=== PATIENT | female | born 1970 | race Caucasian/White ===

== ENCOUNTER 2020-11-27 02:04 | Emergency (ER) | payer MEDICARE, MEDICAID, SELFPAY ==
[2020-11-27 02:05] VITALS: BP 145/85; PULSE 102; RESP 18; TEMP 36.2; O2SAT 95
[2020-11-27 02:06] VITALS: BP 145/85; PULSE 102; RESP 18; TEMP 36.2; O2SAT 95; BMI 33.5
--- NOTE | 2020-11-27 02:20 | CT_ITS ---
EXAM: CT HEAD WITHOUT INTRAVENOUS CONTRAST : 1970 CLINICAL INDICATION: AMS TECHNIQUE: Multiple axial images were obtained of the head without intravenous contrast. This CT exam was performed using one or more of the following dose reduction techniques: automated exposure control, adjustment of the mA and/or kV according to patient size, and/or use of iterative reconstruction technique. This report was created using [employer] report generation technology. COMPARISON: None. FINDINGS: BRAIN AND EXTRA-AXIAL SPACES: Unremarkable. No intra- or extra-axial hemorrhage. No evidence of acute infarct. No intracranial mass or mass effect. There is preservation of the caceres/white matter interface. Posterior fossa structures are unremarkable. Ventricles are appropriate for age. No hydrocephalus. Basal cisterns are patent. BONES/JOINTS: Unremarkable. No discrete lytic or blastic abnormalities. SINUSES: Unremarkable as visualized. Clear. MASTOID AIR CELLS: Unremarkable. Clear. ORBITS: Visualized globes, extraocular muscles, optic nerves and retrobulbar fat appear unremarkable. CT/Brain/Head without Contrast IMPRESSION: Negative head/brain CT without intravenous contrast. Individualized dose optimization techniques were used for this CT. at 0321 Reported and signed by: Steve Carrizales MD Electronically Signed: Steve Carrizales MD at 3:20 EDT Tel , Service support ,
--- NOTE | 2020-11-27 02:22 | EDS_ITS ---
HPI History of Present Illness Chief Complaint: Confusion Narrative Narrative: 50-year-old female presenting with what is reported by her aunt as altered mental status. The patient's aunt states that she lives with her brother full-time. Apparently when he left today she had a fall. She is unable to get up from the ground at baseline because she has cerebral palsy. She does not walk. She uses a sitdown walker to move around the house or she crawls around the house. The patient's aunt does not know what her baseline is because she has not seen her in a while. She states it has been 8 years. When I asked what the uncle thought was a change in her baseline she states she does not note. Her aunt states that earlier yesterday she was rolling on the floor and combative with her uncle. Patient states that she does not recall this happening. There is no reported medical history other than cerebral palsy. [facility] Medical History Cerebral palsy Home Medications cephalexin 500 mg PO BID 7 Days #14 cap 11/27/20 [Rx Last Taken Unknown] Allergy/AdvReac Type Severity Reaction Status Date / Time No Known Allergies Allergy Verified 11/27/20 02:13 Social History Smoking Status: Never smoker ROS ROS ED Constitutional Constitutional ED: Denies chills or fever(s) Eyes Eyes: Denies blurry vision or change in vision ENT ENT ED: Denies rhinorrhea or sore throat Cardiovascular Cardiovascular: Denies chest pain or palpitations Respiratory/Chest Respiratory/Chest: Denies cough, dyspnea, dyspnea on exertion or sputum Gastrointestinal Gastrointestinal: Denies abdominal pain, nausea or vomiting Genitourinary Genitourinary ED: Denies dysuria or hematuria Musculoskeletal Musculoskeletal: Denies arthralgias or myalgias Integumentary Denies abscess or rash Neurologic Neurologic: Denies headache(s) or paresthesias Psychiatric Psychiatric: Denies anxiety or depression EXAM Physical Exam Const Vital Signs: 11/27/20 02:05 11/27/20 02:06 11/27/20 04:46 Temperature 97.2 F L 97.2 F L Temperature Source Temporal Temporal Pulse Rate 102 H 102 H 81 Respiratory Rate 18 18 16 Blood Pressure 145/85 H 145/85 H 137/74 H Blood Pressure Mean 105 105 95 Pulse Ox 95 95 99 Oxygen Delivery Method Room Air Room Air Positive obese and unkempt General Appearance ED: unkempt and NAD Nutritional Appearance: obese HEENT Reports moist mucous membranes HEENT Narrative: Multiple dental caries throughout. Negative for trauma Eyes PERRL and EOMs intact bilaterally Neck no lymphadenopathy and supple Chest Wall inspection of chest normal and palpation of chest normal Resp normal respiratory effort and clear to auscultation bilaterally Cardio regular rate and regular rhythm GI normal to inspection, nondistended, normoactive bowel sounds Back/Spine Cervical Spine: Negative for cervical spine tenderness Thoracic Spine / Upper Back: Negative for thoracic spinal tenderness Lumbar Spine / Lower Back: Negative for lumbar spinal tenderness Extremity Extremity Narrative: There is mild swelling of the left olecranon with some erythema overlying. This is nontender to palpation. Patient has full range of motion of the left elbow. Neuro oriented x3 and CN's II-XII intact bilaterally Sensorium / Orientation: alert Psych mental status grossly normal Appearance: unkempt Skin Skin Narrative: As described above MDM MDM MDM Narrative Medical decision making narrative: 50-year-old female presents for evaluation after is reported that she had a fall today while her uncle was gone. He reported to her and that she was acting strangely but we do not know what her actual baseline is. She is answering questions appropriately. She states she has no pain. She states she is not nauseous. She also states she does not remember thrashing around and acting strangely. On examination she does have some mild erythema over her left olecranon which looks like a bursitis. Rest of her physical exam is unremarkable although she is quite unkempt and has poor dentition. Patient has leukocytosis of 13.8, hemoglobin and hematocrit are stable. Platelets are normal. Potassium was slightly low at 3.3. Patient's renal function and electrolytes are normal otherwise. Patient's urine was sent for culture. Patient is placed on Keflex. Adult Protective Services was called to check on her given her unkempt appearance as well as being unsupervised at home. Her aunt states that her mother is blind, but that her uncle can provide antibiotic treatment at home. She is counseled to keep well-hydrated and should drink enough water until her urine is clear. Impression: 1. UTI 2. Fall 3. Altered mental status resolved 4. Left olecranon bursitis Lab Data Labs: Laboratory Results - last 24 hr 11/27/20 11/27/20 11/27/20 02:30 02:30 02:30 WBC 13.8 H RBC 5.49 H Hgb 15.6 H Hct 45.9 MCV 83.6 MCH 28.4 MCHC 34.0 RDW Std Deviation 38.8 RDW Coeff of Lore 12.8 Plt Count 257 MPV 9.5 Immature Gran % (Auto) 0.600 Neut % (Auto) 85.8 H Lymph % (Auto) 7.7 L Nash % (Auto) 5.7 Eos % (Auto) 0.1 Baso % (Auto) 0.1 Absolute Neuts (auto) 11.9 H Absolute Lymphs (auto) 1.07 Nucleated RBC % 0 Sodium 135 L Potassium 3.3 L Chloride 99 Carbon Dioxide 26.0 Anion Gap 10 BUN 10 Creatinine 0.94 Estim Creat Clear Calc 60.54 Est GFR (MDRD) Af Amer 81 Est GFR (MDRD) Non-Af 67 BUN/Creatinine Ratio 10.6 Glucose 127 H Calcium 9.3 Total Creatine Kinase Urine Color Urine Clarity Urine pH Ur Specific [place] Urine Protein Urine Glucose (UA) Urine Ketones Urine Occult Blood Urine Nitrite Urine Bilirubin Urine Urobilinogen Ur Leukocyte Esterase Urine RBC Urine WBC Ur Squamous Epith Cells Urine Bacteria Urine Mucus Urine Test Urine Opiates Screen Urine Methadone Screen Ur Barbiturates Screen Ur Phencyclidine Scrn Ur Amphetamines Screen U Methamphetamin-MDMA U Benzodiazepines Scrn Urine Cocaine Screen U Cannabinoids Screen Ur Drug Screen Comment Ethyl Alcohol < 3.0 11/27/20 11/27/20 11/27/20 02:30 02:45 02:45 WBC RBC Hgb Hct MCV MCH MCHC RDW Std Deviation RDW Coeff of Lore Plt Count MPV Immature Gran % (Auto) Neut % (Auto) Lymph % (Auto) Nash % (Auto) Eos % (Auto) Baso % (Auto) Absolute Neuts (auto) Absolute Lymphs (auto) Nucleated RBC % Sodium Potassium Chloride Carbon Dioxide Anion Gap BUN Creatinine Estim Creat Clear Calc Est GFR (MDRD) Af Amer Est GFR (MDRD) Non-Af BUN/Creatinine Ratio Glucose Calcium Total Creatine Kinase 1717 H Urine Color Yellow Urine Clarity Sl. Cloudy Urine pH 6.0 Ur Specific [place] 1.025 Urine Protein 100 H Urine Glucose (UA) 250 H Urine Ketones 150 A* Urine Occult Blood 250 H Urine Nitrite Positive H Urine Bilirubin 1 H Urine Urobilinogen 8 H Ur Leukocyte Esterase 25 H Urine RBC 0-5 SEEN Urine WBC 0-5 SEEN Ur Squamous Epith Cells 0 SEEN Urine Bacteria 3+ Urine Mucus 0 SEEN Urine Test Negative Urine Opiates Screen NEGATIVE Urine Methadone Screen NEGATIVE Ur Barbiturates Screen NEGATIVE Ur Phencyclidine Scrn NEGATIVE Ur Amphetamines Screen NEGATIVE U Methamphetamin-MDMA NEGATIVE U Benzodiazepines Scrn NEGATIVE Urine Cocaine Screen NEGATIVE U Cannabinoids Screen NEGATIVE Ur Drug Screen Comment Ethyl Alcohol Radiography Diagnostic Testing: Radiology Impression Brain CT 11/27/20 02:20 IMPRESSION: Negative head/brain CT without intravenous contrast. Individualized dose optimization techniques were used for this CT. at 0321 Reported and signed by: Steve Carrizales MD Electronically Signed: Steve Carrizales MD at 3:20 EDT Tel , Service support , Chest X-Ray 11/27/20 03:00 IMPRESSION: No radiographic evidence of acute cardiopulmonary disease. at 0326 Reported and signed by: Steve Carrizales MD Electronically Signed: Steve Carrizales MD at 3:25 EDT Tel , Service support , Discharge Plan Triage Chief Complaint: Confusion ED Provider: Kip Holland Dx/Rx/DC Orders Instructions: ED CYSTITIS Female Adult, ED Bursitis Elbow Olecranon Prescriptions: New cephalexin 500 mg capsule 500 mg PO BID 7 Days Qty: 14 RF: 0 Primary Care Provider: Care Physician,No Primary Referrals: Murray Pearson MD [STAFF PHYSICIAN] - As soon as possible Care Physician,No Primary [Primary Care Provider] - Disposition Disposition: Home, Self Care Discharge Date/Time: 11/27/20 04:47
[2020-11-27 02:42] LABS: Absolute Lymphocyte Count 1.07 X10^3/uL (0.83-4.51); Absolute Neutrophil Count 11.9 X10^3/uL (2.0-7.7); Basophil# 0.02 X10^3/uL; Basophil% 0.1 % (0-1); Eosinophil# 0.01 X10^3/uL; Eosinophils% 0.1 % (0-5); Hematocrit 45.9 % (37-47); Hemoglobin 15.6 g/dL (12.0-15.0); Lymphocyte # 1.07 X10^3/ul (0.83-4.51); Lymphocyte % 7.7 % (19-41); Mean Corpuscular Hgb 28.4 pg (27.0-32.0); Mean Corpuscular Volume 83.6 fL (81-99); Mean Platelet Vol. 9.5 fl (6.2-12.0); Monocyte# 0.79 X10^3/uL; Monocyte% 5.7 % (0-10); NRBC Flagged by Analyzer 0 % (0-5); Neutrophil # 11.87 X10^3/uL (2.7-7.7); Neutrophil % 85.8 % (47-70); Platelet Count 257 K/mm3 (150-450); RBC Distribution Width CV 12.8 % (11.6-14.6); RBC Distribution Width SD 38.8 fl (35.1-43.9); Red Blood Count 5.49 M/mm3 (4.2-5.4); White Blood Count 13.8 K/mm3 (4.4-11.0)
--- NOTE | 2020-11-27 02:52 | ED.RN ---
PT HAS MULTIPLE HEALING AREAS ON KNEES AND LEFT ARM, BOTTOMS OF PT'S FEET ARE BLACK WITH POOR HYGIENE, PT HAS EXCORIATED AREAS IN GROIN AND GRITTY BLACK GRIME IN GROIN AND BUTTOCK. DR. HATFIELD INFORMED OF SAME.
[2020-11-27 02:55] LABS: Anion Gap 10 (5-15); BUN 10 mg/dL (7-18); BUN/Creat Ratio 10.6 RATIO (10-20); Calcium,Total 9.3 mg/dL (8.5-10.1); Chloride 99 mmol/L (98-107); Creatinine, Serum 0.94 mg/dL (0.55-1.02); EST Glomerular Filtration Rate 67 mL/min (>60); Est Glom Filt Rate - Afr Amer 81 mL/min (>60); Estimated Creatinine Clearance 60.54 ml/min; Glucose 127 mg/dL (74-106); Potassium 3.3 mmol/L (3.5-5.1); Sodium Level 135 mmol/L (136-145)
[2020-11-27 02:55] LABS: Mucous, Urine 0 SEEN /hpf (<or=2+); Squamous Epithelial Cells - UA 0 SEEN /hpf (5-10)
--- NOTE | 2020-11-27 03:00 | RAD_ITS ---
EXAM: XR CHEST, 1 VIEW : 1970 CLINICAL INDICATION: Altered Mental Status TECHNIQUE: Frontal view of the chest. This report was created using [employer] report generation technology. COMPARISON: 10/05/2011 FINDINGS: LUNGS AND PLEURAL SPACES: Unremarkable. No consolidation or edema. No pneumothorax. No effusion. HEART: Unremarkable. Cardiac silhouette not enlarged. MEDIASTINUM: Central airways and mediastinal contour are unremarkable. BONES/JOINTS: Unremarkable. SOFT TISSUES: Unremarkable. RAD/Chest 1 View (Portable) IMPRESSION: No radiographic evidence of acute cardiopulmonary disease. at 0326 Reported and signed by: Steve Carrizales MD Electronically Signed: Steve Carrizales MD at 3:25 EDT Tel , Service support ,
[2020-11-27 03:26] LABS: Alcohol, Blood (Medical)-Serum < 3.0 mg/dL
[2020-11-27 03:27] LABS: Color, Urine Yellow (Yellow); Glucose, Dipstick 250 mg/dl (Normal); Leukocyte Esterase-Dipstick 25 /ul (Negative); Nitrite-Dipstick Positive (Negative); Occult Blood-Urine 250 /ul (Negative); Protein-Dipstick 100 mg/dl (Negative); Specific Gravity, Urine 1.025 (1.002-1.030); Urine Clarity Sl. Cloudy (Clear); Urine Urobilinogen 8 mg/dl (Normal)
[2020-11-27 03:39] LABS: Bacteria 3+ /hpf (None Seen); Internal QC Validated? YES +Cl - CLEAR BKGD; Pregnancy, Urine Negative Negative; Red Blood Cells-Urine 0-5 SEEN /hpf (0-5); Urine Bilirubin Dipstick 1 mg/dL (Negative); White Blood Cells 0-5 SEEN /hpf (0-5)
[2020-11-27 03:47] LABS: Ketone-Dipstick 150 mg/dl (Negative)
[2020-11-27 03:48] LABS: Amphetamine Urine VISTA NEGATIVE (<1000 ng/mL); Barbiturate Urine VISTA NEGATIVE (< 200 ng/mL); Benzodiazepine Urine VISTA NEGATIVE (< 200 ng/mL); Cocaine Urine VISTA NEGATIVE (< 300 ng/mL); Ecstacy Urine VISTA NEGATIVE (< 500 ng/mL); Methadone Urine VISTA NEGATIVE (< 300 ng/mL); PCP Urine VISTA NEGATIVE (< 25 ng/mL); THC Urine VISTA NEGATIVE (< 50 ng/mL); Vista UDS pH Range 6
[2020-11-27 03:48] LABS: CPK Total, Creatine Kinase 1717 U/L (26-192)
[2020-11-27] MEDS: Cephalexin 250 MG Capsule 500 MG PO (04:45)
[2020-11-27 04:46] VITALS: BP 137/74; PULSE 81; RESP 16; O2SAT 99
== END 2020-11-27 04:47 | disposition home or self-care (01) ==
PROVIDERS: Emergency Provider Student in an Organized Health Care Education/Training Program
DX: N39.0 Urinary tract infection, site not specified (principal); M70.22 Olecranon bursitis, left elbow; R41.82 Altered mental status, unspecified; G80.9 Cerebral palsy, unspecified; E66.9 Obesity, unspecified
CPT/HCPCS: 70450; 71045; 80048; 80307; 81001; 81025; 82077; 82550; 85025; 87086; 99283; A4216

== ENCOUNTER 2021-07-15 12:59 | Observation (INO) | payer MEDICARE, MEDICAID, SELFPAY ==
[2021-07-15 13:00] VITALS: BP 162/124; PULSE 102; RESP 16; TEMP 36.3; O2SAT 100; BMI 27.9
--- NOTE | 2021-07-15 13:09 | EX.ED.DYSGE1 ---
HPI History of Present Illness Chief Complaint: Complaint Detail of Chief Complaint: Dysuria Onset/Context/Timing Onset: Today Context: Sudden Onset Timing: Intermittent Quality: Burning with urination Location: Urethra Current Severity: Gone Maximum Severity: Moderate Worsened by: Urinating Relieved by: Nothing Associated Symptoms Associated Symptoms: Nothing Narrative Narrative: Patient is a 50-year-old woman with history of cerebral palsy who presents with burning with urination . Symptoms started today. She denies fever or chills. She denies night sweats. She denies nausea or vomiting. She has not had a recent urinary tract infection. She does not self cath. She denies back or flank pain. Prior similar symptoms: Yes Recent Illness/Hospitalization: No PFSH PFS Medical History Cerebral palsy Home Medications cephalexin 500 mg PO BID 7 Days #14 cap 11/27/20 [Rx Last Taken Unknown] phenazopyridine [Pyridium] 200 mg PO TID #10 tab 07/15/21 [Rx Last Taken Unknown] Allergy/AdvReac Type Severity Reaction Status Date / Time No Known Allergies Allergy Verified 11/27/20 02:13 Social History (Updated 07/15/21 @ 13:[address] Huy Echavarria MD) household members: other Smoking Status: Unknown if ever smoked substance use type: does not use ROS ROS ED Constitutional Constitutional ED: Denies chills, fever(s), subjective, sweats or weight loss Eyes Eyes: Denies blurry vision, change in vision or diplopia Cardiovascular Cardiovascular: Denies chest pain or palpitations Respiratory/Chest Respiratory/Chest: Denies cough or dyspnea Gastrointestinal Gastrointestinal: Denies abdominal pain, constipation, diarrhea, melena, nausea or vomiting Genitourinary Genitourinary ED: Reports dysuria; Denies hematuria or urinary frequency Integumentary Denies rash Hematologic/Lymphatic Hematologic/Lymphatic: Denies anemia, easy bleeding or easy bruising EXAM Physical Exam Const Vital Signs: 07/15/21 13:00 Temperature 97.4 F L Temperature Source Temporal Pulse Rate 102 H Respiratory Rate 16 Blood Pressure 162/124 H Blood Pressure Mean 136 Pulse Ox 100 Oxygen Delivery Method Room Air Positive well nourished and well developed General Appearance ED: well developed and NAD; Negative for cyanotic or diaphoretic HEENT Reports TM's clear and dry mucous membranes HEENT Narrative: Poor dentition. Negative for trauma or tenderness Tympanic Membrane ED: Yes TM's clear Mouth ED: Yes dry mucous membranes Mouth: dry mucous membranes Eyes EOMs intact bilaterally; Negative for PERRL Eyes Narrative: Pupil is not reactive on the left. She is unable to see out of her left eye. General Eye ED: Negative for pale conjunctiva or scleral icterus Neck no lymphadenopathy, supple and no JVD Resp normal respiratory effort and clear to auscultation bilaterally Cardio regular rate, regular rhythm, S1 normal heart sound, S2 normal heart sound and no murmurs GI normal to inspection, nondistended, normoactive bowel sounds, non-tender and non-distended Palpation: soft Back/Spine no CVA tenderness Extremity Negative for normal to inspection General Extremety ED: Negative for edema or tenderness General Extremity: Negative for edema Neuro oriented x3, CN's II-XII intact bilaterally and No no sensory deficits noted Sensorium / Orientation: alert Motor Exam: Negative for strength 5/5 throughout Psych mental status grossly normal Skin no rashes or lesions noted and no wounds General Skin Exam: Negative for jaundice MDM MDM MDM Narrative Medical decision making narrative: Patient presents with urinary tract symptoms. Since she has no systemic symptoms and no CVA tenderness will obtain UA. Since patient is unable to stand straight cath was ordered. Lab Data Attestation: I reviewed the patient's lab results. Lab results narrative: Urine reveals ketones and on the macro occult blood and leukoesterase were noted however the microscopic is normal with no reds, whites or bacteria. We will treat her dysuria with Pyridium. Per the nurse there was no inflammation erythema or discharge noted on straight cath. Labs: Laboratory Results - last 24 hr 07/15/21 13:32 Urine Color Yellow Urine Clarity Clear Urine pH 5.0 Ur Specific [place] 1.020 Urine Protein Negative Urine Glucose (UA) Normal Urine Ketones 50 H Urine Occult Blood 10 H Urine Nitrite Negative Urine Bilirubin Negative Urine Urobilinogen 1 H Ur Leukocyte Esterase 25 H Urine RBC 0 SEEN Urine WBC 0 SEEN Ur Squamous Epith Cells 0 SEEN Urine Bacteria 0 SEEN Urine Mucus 0 SEEN Discharge Plan Triage Chief Complaint: Complaint ED Provider: Huy Echavarria Dx/Rx/DC Orders Clinical Impression: Dysuria Instructions: ED Dysuria, Uncertain Cause (Adult) Prescriptions: New phenazopyridine [Pyridium] 200 MG tablet 200 mg PO TID Qty: 10 RF: 0 No Action cephalexin 500 mg capsule 500 mg PO BID 7 Days Qty: 14 RF: 0 Primary Care Provider: Care Physician,No Primary Referrals: Care Physician,No Primary [Primary Care Provider] - Doctor,Your [STAFF PHYSICIAN] - 3-5 Days if not improving Activity Restrictions/Additional Instructions: The Pyridium will change the color of her urine to orange/red color. Disposition Disposition: Home, Self Care
[2021-07-15 13:37] LABS: Bacteria 0 SEEN /hpf (None Seen); Mucous, Urine 0 SEEN /hpf (<or=2+); Red Blood Cells-Urine 0 SEEN /hpf (0-5); Squamous Epithelial Cells - UA 0 SEEN /hpf (5-10); White Blood Cells 0 SEEN /hpf (0-5)
[2021-07-15 13:41] LABS: Color, Urine Yellow (Yellow); Glucose, Dipstick Normal (Normal); Ketone-Dipstick 50 mg/dl (Negative); Leukocyte Esterase-Dipstick 25 /ul (Negative); Nitrite-Dipstick Negative (Negative); Occult Blood-Urine 10 /ul (Negative); Protein-Dipstick Negative (Negative); Urine Bilirubin Dipstick Negative (Negative); Urine Clarity Clear (Clear); Urine Urobilinogen 1 mg/dl (Normal)
--- NOTE | 2021-07-15 14:12 | ED.RN ---
called social work associate to evaluate pt
--- NOTE | 2021-07-15 14:52 | HP.PCM.HOS_ITS ---
HPI - General HPI Narrative NADER VALLES, is a 50 F who presented to the emergency department was [facility] on 07/15/2021 with a chief complaint of burning with urination. Her symptoms started on the day of presentation. She denied any fever chills, night sweats, nausea or vomiting and has had no recent urinary tract infection. A UA was obtained by the emergency department physician and was reviewed with she and her brother who was at the bedside and at that time the brother informed the emergency department physician that the patient needs placed in nursing facility because he cannot care for her. Social work met with the patient and after review of insurance it was clarified that she would need precertification for [facility] placement. The patient was cared for by her mother until February 2021 at which time her mother . She was then placed with a sister. Unfortunately her sister has children and multiple stressors and was unable to care for her any longer and she was therefore passed to her brother. Her brother works full-time and is unable to care for her at home. Upon presentation she appears unkept. Request for admission was made for placement purposes. Vital signs in the emergency department were temperature of 97.4, heart rate 102, blood pressure 162/124, respiratory rate 16, oxygen saturation 100% on room air. It appears that she has been mildly tachycardic and hypertensive with previous hospital visits but is on no baseline medication. She has cerebral palsy. [facility] Medical History Cerebral palsy Home Medications phenazopyridine [Pyridium] 200 mg PO TID #10 tab 07/15/21 [Rx Last Taken Unknown] Allergy/AdvReac Type Severity Reaction Status Date / Time No Known Allergies Allergy Verified 11/27/20 02:13 Family History Other COPD (chronic obstructive pulmonary disease) Cancer Diabetes Heart disease no surgical history Social History (Updated 07/15/21 @ 15:[address] Teresa Fermin DO) household members: other financial difficulty paying for basics: very hard Smoking Status: Never smoker second hand exposure: Yes alcohol intake: never substance use type: does not use ROS Constitutional Constitutional: Reports change in weight; Denies anorexia, chills, fatigue, fever(s), malaise, night sweats, weakness or other Eyes Eyes: Denies blurry vision, change in eye color, change in vision, discharge from eye(s), double vision, erythema, eye pain, loss of vision or other ENT HEENT: Denies abnormal hearing, dysphagia, ear pain, epistaxis, headache(s), hearing loss, nasal congestion, nasal discharge, post nasal drip, sinus pressure, sore throat or other Cardiovascular Cardiovascular: Denies chest pain, claudication, dyspnea on exertion, edema, lightheadedness, orthopnea, palpitations, paroxysmal nocturnal dyspnea, rapid heart rate, syncope or other Respiratory/Chest Respiratory/Chest: Denies cough, dyspnea, excessive phlegm production, hemoptysis, productive cough, shortness of breath at rest, shortness of breath with exertion, wheezing or other Gastrointestinal Gastrointestinal: Denies abdominal pain, coffee ground emesis, constipation, diarrhea, dyspepsia, hematemesis, hematochezia, loose stools, melena, nausea, vomiting or other Genitourinary Genitourinary: Reports burning urination; Denies difficulty urinating, dysuria, hematuria, nocturia, urinary frequency, urinary hesitancy, urinary incontinence, urinary urgency or other Musculoskeletal Musculoskeletal: Reports joint pain, joint stiffness and other; Denies arthralgias, back pain, joint swelling, myalgias or neck pain Neurologic Neurologic: Reports abnormal gait; Denies abnormal speech, confusion, disequilibrium, dizziness, focal weakness, headache(s), numbness, paresthesias, seizure-like activity, seizures, syncope, tingling, tremor(s) or other Psychiatric Psychiatric: Reports depression; Denies anxiety, homicidal ideation, suicidal ideation or other Endocrine Endocrinology: Denies change in body appearance, cold intolerance, excessive sweating, heat intolerance, polydipsia, polyuria or other Hematologic/Lymphatic Hematologic/Lymphatic: Denies anemia, easy bleeding, easy bruising, lymphadenopathy or other Allergic/Immunologic Allergic/Immunologic: Denies rhinitis, hives, eczemia, asthma or other Vital Signs Vital Signs Vital Signs: 07/15/21 13:00 Temperature 97.4 F L Temperature Source Temporal Pulse Rate 102 H Respiratory Rate 16 Blood Pressure 162/124 H Blood Pressure Mean 136 Pulse Ox 100 Oxygen Delivery Method Room Air Weight Weight: 76.204 kg Body Mass Index (BMI) 27.9 Physical Exam Const alert, oriented x3 and no apparent distress Constitutional Narrative: Extremely disheveled middle-aged white female who appears older than stated age sitting up in bed, brother at bedside, patient appears nontoxic, pleasant General Appearance: cooperative HEENT normocephalic, head/scalp atraumatic, hearing grossly normal bilaterally and moist oral mucous membranes HEENT Narrative: Extremely poor dentition with broken off and rotted teeth, mucous membranes are moist, Mallampati is 2 Eyes Eyes Narrative: Left eye cataract Resp normal respiratory effort, no retractions, no use of accessory muscles and clear to auscultation bilaterally Auscultation: Negative for crackles, rales, rhonchi or wheezes Cardio regular rate, regular rhythm, S1 normal heart sound, S2 normal heart sound, no murmurs, no rub, no gallops, no clicks and no JVD GI normal to inspection, nondistended, normoactive bowel sounds, soft to palpation, non-tender, non-distended and hepatosplenomegaly Extremity no clubbing, cyanosis or edema Extremity Narrative: Increase spasticity left greater than right upper and lower extremities with decreased lean muscle mass Peripheral Pulses: Yes pulses 2+ throughout Skin skin turgor normal, no jaundice, no petechiae and no mottling Skin Narrative: And is unclean, dirt underneath fingernails Neuro oriented x3, CN's II-XII intact bilaterally and moves all extremities Neuro Narrative: Marked spasticity noted Sensorium / Orientation: awake and alert Psych Psych Narrative: Tearful at times with regards to the recent of her mother, affect is flat Mood & Affect: depressed Results Lab / Micro Data Attestation: I reviewed the patient's lab results. Labs: Laboratory Results - last 24 hr 07/15/21 13:32: Urine Color Yellow, Urine Clarity Clear, Urine pH 5.0, Ur Spec ific [place] 1.020, Urine Protein Negative, Urine Glucose (UA) Normal, Urine Ketones 50 H, Urine Occult Blood 10 H, Urine Nitrite Negative, Urine Bilirubin Negative, Urine Urobilinogen 1 H, Ur Leukocyte Esterase 25 H, Urine RBC 0 SEEN, Urine WBC 0 SEEN, Ur Squamous Epith Cells 0 SEEN, Urine Bacteria 0 SEEN, Urine Mucus 0 SEEN Assessment & Plan Assessment/Plan (1) Debility: PLAN: Debility secondary to cerebral palsy -Patient was cared for by her mother until February 2021 at which time she -No family at this time that is able to take care of her -She is currently unkept and has been passed around from family member to family member until brought in today -Physical therapy and Occupational Therapy consultation -Case has been discussed with case management -Patient will likely need to be cleared by the [facility] -May be beneficial to obtain guardianship -Obtain a.m. labs with CBC/CMP/Phos/mag/TSH Elevated blood pressure -No diagnosis of hypertension previously -Blood pressures have been elevated -We will give her as needed hydralazine at this time and if remains elevated patient may need to be initiated on an antihypertensive -Trend blood pressures Dysuria -Patient complained of dysuria and presentation -UA shows no signs of infection -As needed pyridine Cerebral palsy -Stable DVT prophylaxis -Lovenox CODE STATUS Full code as per discussion the emergency department with patient and brother who is at the bedside Charges/Coding Visit Charges Inpatient E&M: 55154 Subs Hosp L2
[2021-07-15] MEDS: Phenazopyridine 95 MG Tablet 190 MG PO (14:54)
[2021-07-15 14:55] VITALS: BP 153/108; PULSE 93; RESP 18; TEMP 37.1; O2SAT 96
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
[2021-07-15 15:31] VITALS: BMI 27.4
[2021-07-15 15:49] VITALS: BP 143/109; PULSE 88; RESP 18; TEMP 36.6; O2SAT 98
[2021-07-15 20:00] VITALS: RESP 16; O2SAT 96
[2021-07-15 20:20] VITALS: BP 148/90; PULSE 106; RESP 18; TEMP 36.7; O2SAT 96
[2021-07-15] MEDS: Phenazopyridine 95 MG Tablet PO (20:21)
[2021-07-15] MEDS: Menthol/Lanolin/Calamine/Znox 113 GM Tube 1 APPLIC TOPICAL (22:57)
[2021-07-16] MEDS: MELATONIN 3 MG TABLET PO ×2 (00:09→21:30)
[2021-07-16 00:16] VITALS: BP 110/84; PULSE 94; RESP 18; TEMP 36.2; O2SAT 94
[2021-07-16 03:23] VITALS: BP 116/83; PULSE 99; RESP 20; TEMP 36.6; O2SAT 93
[2021-07-16] MEDS: Phenazopyridine 95 MG Tablet PO ×3 (06:18→21:29)
[2021-07-16 06:45] LABS: Absolute Lymphocyte Count 0.77 X10^3/uL (0.83-4.51); Absolute Neutrophil Count 9.9 X10^3/uL (2.0-7.7); Basophil# 0.01 X10^3/uL; Basophil% 0.1 % (0-1); Eosinophil# 0.02 X10^3/uL; Eosinophils% 0.2 % (0-5); Hematocrit 47.1 % (37-47); Hemoglobin 16.4 g/dL (12.0-15.0); Lymphocyte # 0.77 X10^3/ul (0.83-4.51); Lymphocyte % 6.9 % (19-41); Mean Corp Hgb Conc 34.8 g/dL (32-36); Mean Corpuscular Hgb 29.3 pg (27.0-32.0); Mean Corpuscular Volume 84.3 fL (81-99); Mean Platelet Vol. 9.8 fl (6.2-12.0); Monocyte# 0.39 X10^3/uL; Monocyte% 3.5 % (0-10); NRBC Flagged by Analyzer 0 % (0-5); Neutrophil # 9.88 X10^3/uL (2.7-7.7); Neutrophil % 88.9 % (47-70); Platelet Count 262 K/mm3 (150-450); RBC Distribution Width SD 39.2 fl (35.1-43.9); Red Blood Count 5.59 M/mm3 (4.2-5.4); White Blood Count 11.1 K/mm3 (4.4-11.0)
[2021-07-16 07:19] LABS: ALB/GLOB Ratio 0.8 RATIO (0.9-2.4); AST(SGOT) 17 U/L (15-37); Alanine Aminotransfer ALT/SGPT 29 U/L (13-56); Albumin, Serum 3.4 g/dL (3.2-5.0); Alkaline Phosphatase 108 U/L (45-117); Anion Gap 8 (5-15); BUN 18 mg/dL (7-18); BUN/Creat Ratio 22.5 RATIO (10-20); Calcium,Total 9.1 mg/dL (8.5-10.1); Chloride 103 mmol/L (98-107); EST Glomerular Filtration Rate 81 mL/min (>60); Est Glom Filt Rate - Afr Amer 98 mL/min (>60); Estimated Creatinine Clearance 68.02 ml/min; Globulin 4.2 g/dL (2.2-4.2); Glucose 160 mg/dL (74-106); Magnesium 2.1 mg/dL (1.6-2.6); Phosphorus 2.4 mg/dL (2.5-4.9); Potassium 3.5 mmol/L (3.5-5.1); Protein, Total 7.6 g/dL (6.4-8.2); Sodium Level 136 mmol/L (136-145); Thyroid Stim Hormone (TSH) 1.25 uIU/mL (0.358-3.74)
[2021-07-16 08:43] VITALS: BP 127/93; PULSE 87; RESP 16; TEMP 36.4; O2SAT 93
[2021-07-16 08:51] LABS: Hemoglobin A1c 4.7 % (3.8-5.6)
[2021-07-16] MEDS: Menthol/Lanolin/Calamine/Znox 113 GM Tube 1 APPLIC TOPICAL ×2 (08:52→21:30)
[2021-07-16] MEDS: Enoxaparin 40 MG/0.4 ML Syringe SC (08:52)
[2021-07-16] MEDS: Na Biphos/Potassium Phosphate PACKET 1 PACKET PO (09:14)
--- NOTE | 2021-07-16 09:33 | PCM.PN.HOSP ---
Subjective Subjective No specific issues overnight. Patient was not all that willing to talk to me this morning. Objective Data Objective Data Vital Signs: Vital Signs Temp Pulse Resp BP Pulse Ox 97.5 F L 87 16 127/93 H 93 07/16/21 08:43 07/16/21 08:43 07/16/21 08:43 07/16/21 08:43 07/16/21 08:43 Oxygen Delivery Method Room Air Weight: 68.039 kg Body Mass Index (BMI) 27.4 Intake & Output: Intake and Output for Last 24 Hours 07/14/21 07/15/21 07/17/21 23:59 23:59 00:59 Intake Total 950 / 950 Output Total 350 / 600 300 / 300 Balance 600 / 350 -300 / -300 Lab / Micro Data Result Diagrams: 07/16/21 05:19 07/16/21 05:19 Labs: Laboratory Results - last 24 hr 07/15/21 13:32: Urine Color Yellow, Urine Clarity Clear, Urine pH 5.0, Ur Specific Sargent 1.020, Urine Protein Negative, Urine Glucose (UA) Normal, Urine Ketones 50 H, Urine Occult Blood 10 H, Urine Nitrite Negative, Urine Bilirubin Negative, Urine Urobilinogen 1 H, Ur Leukocyte Esterase 25 H, Urine RBC 0 SEEN, Urine WBC 0 SEEN, Ur Squamous Epith Cells 0 SEEN, Urine Bacteria 0 SEEN, Urine Mucus 0 SEEN 07/16/21 05:13: Hemoglobin A1c 4.7 07/16/21 05:19: WBC 11.1 H, RBC 5.59 H, Hgb 16.4 H, Hct 47.1 H, MCV 84.3, MCH 29.3, MCHC 34.8, RDW Std Deviation 39.2, RDW Coeff of Lore 13.0, Plt Count 262, MPV 9.8, Immature Gran % (Auto) 0.400, Neut % (Auto) 88.9 H, Lymph % (Auto) 6.9 L, Nome % (Auto) 3.5, Eos % (Auto) 0.2, Baso % (Auto) 0.1, Absolute Neuts (auto) 9.9 H, Absolute Lymphs (auto) 0.77 L, Nucleated RBC % 0 07/16/21 05:19: Sodium 136, Potassium 3.5, Chloride 103, Carbon Dioxide 25.0, Anion Gap 8, BUN 18, Creatinine 0.80, Estim Creat Clear Calc 68.02, Est GFR (MDRD) Af Amer 98, Est GFR (MDRD) Non-Af 81, BUN/Creatinine Ratio 22.5 H, Glucose 160 H, Calcium 9.1, Phosphorus 2.4 L, Magnesium 2.1, Total Bilirubin 0.50, AST 17, ALT 29, Alkaline Phosphatase 108, Total Protein 7.6, Albumin 3.4, Globulin 4.2, Albumin/Globulin Ratio 0.8 L, TSH 1.25 Physical Exam Const alert, oriented x3, no apparent distress and average body habitus Constitutional Narrative: middle-aged white female who appears older than stated age sitting up in bed, patient appears nontoxic, unwilling to talk to me this morning General Appearance: cooperative Exam Limitations: behavioral limitations HEENT normocephalic, head/scalp atraumatic, hearing grossly normal bilaterally and moist oral mucous membranes HEENT Narrative: Dentition is extremely poor Head and Scalp: normocephalic Eyes Eyes Narrative: Left eye cataract Resp normal respiratory effort, no retractions, no use of accessory muscles and clear to auscultation bilaterally Auscultation: Negative for crackles, rales, rhonchi or wheezes Cardio regular rate, regular rhythm, S1 normal heart sound, S2 normal heart sound, no murmurs, no rub, no gallops, no clicks and no JVD GI normal to inspection, nondistended, normoactive bowel sounds, soft to palpation, non-tender, non-distended and hepatosplenomegaly Extremity no clubbing, cyanosis or edema Extremity Narrative: Increase spasticity left greater than right upper and lower extremities with decreased lean muscle mass Peripheral Pulses: Yes pulses 2+ throughout Neuro oriented x3 and moves all extremities Neuro Narrative: Marked spasticity noted Sensorium / Orientation: awake and alert Psych affect normal Assessment & Plan Assessment/Plan (1) Debility: PLAN: Debility secondary to cerebral palsy -Patient was cared for by her mother until February 2021 at which time she -No family at this time that is able to take care of her -She is currently unkept and has been passed around from family member to family member until brought in 07/15/2021 -Physical therapy and Occupational Therapy consultation pending -Case has been discussed with case management -Patient will likely need to be cleared by the [facility] -May be beneficial to obtain guardianship Elevated blood pressure -No diagnosis of hypertension previously -Blood pressures were elevated upon presentation but improved this morning with a systolic of 116 and diastolic of 83 -Continue as needed hydralazine for systolic greater than 160 -Trend blood pressures and initiate antihypertensives if she is consistently having elevated blood pressures Hyperglycemia -A.m. blood sugar was 140 fasting--> suspect that this may not have been entirely fasting giving A1c being normal -Hemoglobin A1c was obtained and found to be 4.7 Mild hypophosphatemia -Oral phosphorus replacement -Recheck in a.m. Dysuria -Patient complained of dysuria and presentation -UA shows no signs of infection -As needed Pyridium Cerebral palsy -Stable DVT prophylaxis -Lovenox CODE STATUS Full code as per discussion the emergency department with patient and brother who was at the bedside Charges/Coding Visit Charges Inpatient E&M: 50515 Subs Hosp L2
[2021-07-16 14:22] VITALS: BP 121/93; PULSE 89; RESP 18; TEMP 36.7; O2SAT 92
[2021-07-16 21:26] VITALS: BP 131/96; PULSE 90; RESP 18; TEMP 37; O2SAT 95
[2021-07-17 04:08] VITALS: BP 127/92; PULSE 76; RESP 18; TEMP 36.2; O2SAT 93
[2021-07-17] MEDS: Phenazopyridine 95 MG Tablet PO ×2 (04:14→14:03)
[2021-07-17 06:53] LABS: Anion Gap 4 (5-15); BUN 17 mg/dL (7-18); BUN/Creat Ratio 30.1 RATIO (10-20); Calcium,Total 8.8 mg/dL (8.5-10.1); Chloride 105 mmol/L (98-107); Creatinine, Serum 0.56 mg/dL (0.55-1.02); EST Glomerular Filtration Rate 121 mL/min (>60); Est Glom Filt Rate - Afr Amer 147 mL/min (>60); Estimated Creatinine Clearance 97.17 ml/min; Glucose 113 mg/dL (74-106); Phosphorus 2.9 mg/dL (2.5-4.9); Potassium 3.3 mmol/L (3.5-5.1); Sodium Level 137 mmol/L (136-145)
[2021-07-17] MEDS: Potassium Chloride Oral Tablet 20 MEQ PO ×2 (08:40→17:32)
[2021-07-17] MEDS: Enoxaparin 40 MG/0.4 ML Syringe SC (09:11)
[2021-07-17] MEDS: Na Biphos/Potassium Phosphate PACKET 1 PACKET PO (09:11)
[2021-07-17] MEDS: Menthol/Lanolin/Calamine/Znox 113 GM Tube 1 APPLIC TOPICAL ×2 (09:12→21:36)
--- NOTE | 2021-07-17 09:56 | PCM.PN.HOSP ---
Subjective Subjective Follow-up on debility: Patient was seen and examined. Denied any new complaints. No acute events overnight. Objective Data Objective Data Vital Signs: Vital Signs Temp Pulse Resp BP Pulse Ox 97.1 F L 76 18 127/92 H 93 07/17/21 04:08 07/17/21 04:08 07/17/21 04:08 07/17/21 04:08 07/17/21 04:08 Oxygen Delivery Method Room Air Weight: 68.039 kg Body Mass Index (BMI) 27.4 Intake & Output: Intake and Output for Last 24 Hours 07/15/21 07/16/21 07/17/21 22:59 23:59 23:59 Intake Total Output Total 250 / 250 Balance -250 / -250 Lab / Micro Data Result Diagrams: 07/16/21 05:19 07/17/21 05:20 Labs: Laboratory Results - last 24 hr 07/17/21 05:20: Sodium 137, Potassium 3.3 L, Chloride 105, Carbon Dioxide 28.0, Anion Gap 4 L, BUN 17, Creatinine 0.56, Estim Creat Clear Calc 97.17, Est GFR (MDRD) Af Amer 147, Est GFR (MDRD) Non-Af 121, BUN/Creatinine Ratio 30.1 H, Glucose 113 H, Calcium 8.8, Phosphorus 2.9 Physical Exam Narrative Physical exam: General: Alert, Oriented x1, Cooperative, No apparent distress, HEENT: Atraumatic Oral: Moist Mucosa Neck: Supple Lungs: Clear to auscultation Cardiovascular: HS I+II, regular, no murmurs Abdomen: Bowel Sounds Present, Soft, Non Tender Extremities: No edema Assessment & Plan Assessment/Plan (1) Debility: PLAN: 1. Chronic debility secondary to cerebral palsy, with poor family support for now Waiting on discharge to facility. 2. Hypokalemia, replaced 3. Elevated blood pressure without a diagnosis of hypertension, blood pressure remained stable Continue to monitor 4. Hypophosphatemia, replaced 5. DVT prophylaxis?Lovenox subcu Charges/Coding Visit Charges Inpatient E&M: 27488 Subs Hosp L2
[2021-07-17 10:00] VITALS: BP 134/94; PULSE 85; RESP 18; TEMP 36.3; O2SAT 95
--- NOTE | 2021-07-17 10:03 | CASEMGMT ---
Addendum entered by Lali Stinson 07/17/21 10:46: SW in to speak with pt. Pt is alert and orientated x3 (knew somewhat time, pt knew it was July but not the year). SW spoke with pt. Pt unable to state where she was living at before coming to [facility]. Per notes, pt was living with her sister Libertad. Pt states she was not living with Libertad. Pt states she was not living with Jordon either. Pt states she was able to take care of herself though. Pt is able to state that her aunt is August and August provides the transportation. Pt states that she remembers speaking to SW on Saturday regarding SNF placement. SW informed pt that per notes, pt's family had mentioned [facility]. Pt states she is aware, agreeable to [facility]. SW asked pt for additional SNF choices if [facility] cannot accept pt. Pt states she doesn't have any other choices. Pt did give permission for this worker to call Jordon. SW asked pt about her Cerebral Palsy, pt confirms she was born with it. Due to pt's diagnosis of Cerebral Palsy, pt is likely going to trip the PAS/RR screening tool. SW will need to confirm SNF placement before PAS/RR can be submitted. SW waiting for call back from [facility] regarding bed availability and if they accept pt's insurance. Original Note: Social Work Note SW reviewed chart. Pt's brother Jordon mentioned [facility] at discharge for pt. SW placed a call to [facility] and left message to inquire about bed availability and if they accept pt's insurance. SW waiting for call back from [facility]. Lali Stinson CONTENT ADMINISTRATOR, SUPPLY CHAIN PLANNER
--- NOTE | 2021-07-17 12:11 | CASEMGMT ---
VALERIO GARCIA attempted to call brother Jordon to complete [place] form as patient is only alert to person and place. No answer, unable to leave voicemail as mailbox is not setup. VALERIO GARCIA will attempted to complete [place] form again at later time.
--- NOTE | 2021-07-17 12:30 | CASEMGMT ---
Brother Jordon called [facility]3 unit and call transferred to this RN CM. RN CM explained NOLAS[place] for to Jordon over the phone, Jordon voiced understand. Telephone consent received. RN CM place NOLASCO form in chart and provided copy to patient. Brother Jordon had no further questions or concerns at this time.
--- NOTE | 2021-07-17 12:53 | CASEMGMT ---
Social Work Note Pt's brother Jordon called in. SHIV spoke with Jordon about discharge plans. Jordon's friend Mary also on the phone call and Jordon gave this worker permission to speak with both Jordon and Mary. Jordon confirms that he wants pt to go to [facility]. Mary states that [facility] accepted pt last week. SHIV explained that this worker will need to speak with [facility] regarding referral. SHIV asked Jordon for additional choices in the event [facility] is not able to accept. Jordon states he has none. Mary states that Jordon walks everyone so location hernandez [facility] is closest. SW informed Jordon and Mary that there are other SNF in [place] that may be an option in the event [facility] cannot accept pt. SHIV asked Jordon about pt's family. Libertad is pt's cousin and not sister. Medical Decision making would go to Jordon as he is the only sibling for pt. Pt's mother December 2020. Jordon confirms that pt has had Cerebral Palsy since . Jordon states pt has no MH History. SHIV explained process of getting an accepting SNF for pt and that pt will need approval through Board of DD before pt can discharge to SNF. SHIV informed Jordon that this worker will give him a call once determination has been made from [facility]. Jordon states that the best time to call him is 11:00am-2:00pm as he works at 3:00pm and works until 1-2:00am. Mary provided her number ([phone]). Jordon states that if it is after 3:00pm and [facility] gets back to this worker, this worker can call Mary and udpate her as Jordon will be at work. SW faxed referral to [facility]. Plan: SNF pending acceptance and pre-cert. Pt will also need approval from Board of DD as pt will trip the PAS/RR. Lali Stinson DIAMOND SIZER AND GRADER, SOLO MUSICIAN
--- NOTE | 2021-07-17 15:11 | CASEMGMT ---
Social Work Note SW placed a call to [facility] and spoke with Shirley. Shirley states she received referral and the DON is currently reviewing the referral. Shirley to call this worker back once DON makes determination on referral. Plan: [facility] pending acceptance, pre-cert, approval from Board of DD Lali Stinson MSW, PEWTER CASTER
[2021-07-17 16:00] VITALS: BP 128/94; PULSE 99; RESP 16; TEMP 36.5; O2SAT 95
[2021-07-17 21:34] VITALS: BP 148/99; PULSE 62; RESP 18; TEMP 36.9; O2SAT 95
[2021-07-17] MEDS: MELATONIN 3 MG TABLET PO (21:35)
[2021-07-18 03:10] VITALS: BP 133/93; PULSE 80; RESP 16; TEMP 36.8; O2SAT 95
[2021-07-18 06:14] LABS: Absolute Lymphocyte Count 1.89 X10^3/uL (0.83-4.51); Absolute Neutrophil Count 5.7 X10^3/uL (2.0-7.7); Basophil# 0.03 X10^3/uL; Basophil% 0.4 % (0-1); Eosinophil# 0.15 X10^3/uL; Eosinophils% 1.8 % (0-5); Hematocrit 44.2 % (37-47); Hemoglobin 15.8 g/dL (12.0-15.0); Lymphocyte # 1.89 X10^3/ul (0.83-4.51); Lymphocyte % 22.6 % (19-41); Mean Corp Hgb Conc 35.7 g/dL (32-36); Mean Corpuscular Hgb 30.9 pg (27.0-32.0); Mean Corpuscular Volume 86.3 fL (81-99); Monocyte# 0.57 X10^3/uL; Monocyte% 6.8 % (0-10); NRBC Flagged by Analyzer 0 % (0-5); Neutrophil # 5.68 X10^3/uL (2.7-7.7); Neutrophil % 67.9 % (47-70); Platelet Count 230 K/mm3 (150-450); RBC Distribution Width CV 13.1 % (11.6-14.6); Red Blood Count 5.12 M/mm3 (4.2-5.4); White Blood Count 8.4 K/mm3 (4.4-11.0)
[2021-07-18 06:45] LABS: ALB/GLOB Ratio 0.7 RATIO (0.9-2.4); AST(SGOT) 15 U/L (15-37); Alanine Aminotransfer ALT/SGPT 30 U/L (13-56); Albumin, Serum 2.9 g/dL (3.2-5.0); Alkaline Phosphatase 88 U/L (45-117); Anion Gap 5 (5-15); BUN 20 mg/dL (7-18); BUN/Creat Ratio 34.3 RATIO (10-20); Calcium,Total 8.7 mg/dL (8.5-10.1); Chloride 104 mmol/L (98-107); Creatinine, Serum 0.58 mg/dL (0.55-1.02); EST Glomerular Filtration Rate 117 mL/min (>60); Est Glom Filt Rate - Afr Amer 141 mL/min (>60); Estimated Creatinine Clearance 93.82 ml/min; Glucose 128 mg/dL (74-106); Potassium 3.6 mmol/L (3.5-5.1); Protein, Total 6.9 g/dL (6.4-8.2); Sodium Level 138 mmol/L (136-145)
[2021-07-18 07:31] VITALS: BP 126/82; PULSE 75; RESP 16; TEMP 36.5; O2SAT 95
[2021-07-18] MEDS: Potassium Chloride Oral Tablet 20 MEQ PO ×2 (07:46→17:48)
[2021-07-18] MEDS: Enoxaparin 40 MG/0.4 ML Syringe SC (09:01)
[2021-07-18] MEDS: Menthol/Lanolin/Calamine/Znox 113 GM Tube 1 APPLIC TOPICAL ×2 (09:07→21:55)
--- NOTE | 2021-07-18 09:17 | CASEMGMT ---
Addendum entered by Lali Stinson 07/18/21 11:17: SHIV placed a call to pt's brother Jordon and Jordon's friend Mary is with Jordon at this time. SHIV updated Jordon that [facility] cannot accept pt, asked for additional choices. Jordon states to try [facility] next and if they cannot accept pt then to try [facility]. Jordon then asked about W. SHIV informed Jordon that [facility] currently has no beds available and they do not accept pt's insurance. Jordon states understanding. SHIV placed a call to [facility] and spoke with Sommer in admissions. Sommer willing to review referral. SHIV faxed referral to Sommer at [facility]. Plan: SNF pending acceptance and pre-cert and approval through the board of DD Original Note: Social Work Note SW received message from Shirley at [facility] stating they cannot accept pt. Per previous conversations with pt's brother he prefers to be called between the hours of 11:00-2:00pm. SHIV will call pt's brother Jordon at 11:00am to discuss next SNF options for pt. Plan: SNF pending acceptance and pre-cert Lali Stinson ACTIONSCRIPT DEVELOPER, CHILD CARE COORDINATOR
--- NOTE | 2021-07-18 10:48 | PCM.PN.HOSP ---
Subjective Subjective Follow-up on debility: Patient was seen and examined. No acute events overnight. Objective Data Objective Data Vital Signs: Vital Signs Temp Pulse Resp BP Pulse Ox 97.7 F L 75 16 126/82 H 95 07/18/21 07:31 07/18/21 07:31 07/18/21 07:31 07/18/21 07:31 07/18/21 07:31 Oxygen Delivery Method Room Air Weight: 68.039 kg Body Mass Index (BMI) 27.4 Intake & Output: Intake and Output for Last 24 Hours 07/16/21 07/17/21 07/18/21 23:59 23:59 23:59 Intake Total 150 / 150 Output Total 800 / 800 250 / 250 Balance -650 / -650 -250 / -250 Lab / Micro Data Result Diagrams: 07/18/21 05:30 07/18/21 05:30 Labs: Laboratory Results - last 24 hr 07/18/21 05:30: WBC 8.4, RBC 5.12, Hgb 15.8 H, Hct 44.2, MCV 86.3, MCH 30.9, MCHC 35.7, RDW Std Deviation 41.0, RDW Coeff of Lore 13.1, Plt Count 230, MPV 10.0, Immature Gran % (Auto) 0.500, Neut % (Auto) 67.9, Lymph % (Auto) 22.6, [place]wood % (Auto) 6.8, Eos % (Auto) 1.8, Baso % (Auto) 0.4, Absolute Neuts (auto) 5.7, Absolute Lymphs (auto) 1.89, Nucleated RBC % 0 07/18/21 05:30: Sodium 138, Potassium 3.6, Chloride 104, Carbon Dioxide 29.0, Anion Gap 5, BUN 20 H, Creatinine 0.58, Estim Creat Clear Calc 93.82, Est GFR (MDRD) Af Amer 141, Est GFR (MDRD) Non-Af 117, BUN/Creatinine Ratio 34.3 H, Glucose 128 H, Calcium 8.7, Total Bilirubin 0.30, AST 15, ALT 30, Alkaline Phosphatase 88, Total Protein 6.9, Albumin 2.9 L, Globulin 4.0, Albumin/Globulin Ratio 0.7 L Physical Exam Narrative Physical exam: General: Alert, Oriented x1, Cooperative, No apparent distress, HEENT: Atraumatic Oral: Moist Mucosa Neck: Supple Lungs: Clear to auscultation Cardiovascular: HS I+II, regular, no murmurs Abdomen: Bowel Sounds Present, Soft, Non Tender Extremities: No edema Assessment & Plan Assessment/Plan (1) Debility: PLAN: 1. Chronic debility secondary to cerebral palsy, with poor family support for now Waiting on discharge to facility. 2. Hypokalemia, replaced 3. Elevated blood pressure without a diagnosis of hypertension, blood pressure remained stable Continue to monitor 4. Hypophosphatemia, replaced 5. DVT prophylaxis?Lovenox subcu Charges/Coding Visit Charges Inpatient E&M: 16088 Subs Hosp L2
[2021-07-18 10:50] VITALS: O2SAT 96
--- NOTE | 2021-07-18 13:30 | CASEMGMT ---
Social Work Note SW also faxed referral to [facility] as this was Jordon's third choice for SNF in the event [facility] cannot accept pt. SW waiting for call back from both [facility] and [facility]. Plan: SNF pending acceptance, pre-cert, and approval from Board of DD Lali Stinson HOT DIP PLATING SUPERVISOR, SCUBA DIVING TEACHER
--- NOTE | 2021-07-18 14:54 | NURSING ---
student charting reviewed by Fransico RN, instructor
--- NOTE | 2021-07-18 15:15 | CASEMGMT ---
Social Work Note SW received call from Mya at [facility] stating they can accept pt. SW also received call from Sommer at [facility] stating they can accept pt. SW placed a call to pt's brother Jordon. It is after 3:00pm so Jordon is likely at work. There was no answer and SW unable to leave message. SW placed a call to Jordon's friend Mary and updated her that both [facility] and [facility] is able to accept pt. Mary states she spoke with Jordon earlier and Jordon works in [place] so Mary confirms that [facility] is preferred over [facility]. SW completed PAS/RR in [facility]. Pt did trip the screen. Pt will need approval from Board of DD. Plan: [facility] pending pre-cert and Approval from the Board of DD Lali Stisnon PUBLIC HEALTH POLICY ANALYST, POWER STATION OPERATOR
[2021-07-18 15:45] VITALS: BP 147/93; PULSE 85; RESP 16; TEMP 36.9; O2SAT 97
[2021-07-18 20:26] VITALS: BP 139/91; PULSE 86; RESP 18; TEMP 36.8; O2SAT 95
[2021-07-18] MEDS: MELATONIN 3 MG TABLET PO (21:55)
[2021-07-19 02:30] VITALS: BP 128/89; PULSE 74; RESP 18; TEMP 36.6; O2SAT 95
[2021-07-19 08:30] VITALS: BP 137/93; PULSE 91; RESP 14; TEMP 37.1; O2SAT 95
--- NOTE | 2021-07-19 09:07 | CASEMGMT ---
Addendum entered by Lali Stinson 07/19/21 11:46: SHIV placed a call to Mya at [facility] and informed her to disregard referral Addendum entered by Lali Stinson 07/19/21 11:19: SW placed a call to pt's brother Jordon. Jordon confirms he spoke with Mary. Jordon agreeable to [facility]. SHIV explained that pre-cert will be needed and approval from Board of DD will also be needed so pt will remain at [facility] until those things happen. SHIV informed Jordon that this worker will update him when pt discharges to [facility]. Jordon states understanding. Original Note: Social Work Note SHIV emailed Coco Loya at [facility] Board of DD to let her know that pt tripped the screen, will need a review from Board of DD. Lali Stinson WOOD AND WOOD PRODUCTS LABOURER, DERMATOLOGY PHYSICIAN ASSISTANT
[2021-07-19] MEDS: Menthol/Lanolin/Calamine/Znox 113 GM Tube 1 APPLIC TOPICAL ×2 (09:19→21:29)
[2021-07-19] MEDS: Enoxaparin 40 MG/0.4 ML Syringe SC (09:20)
[2021-07-19] MEDS: Potassium Chloride Oral Tablet 20 MEQ PO ×2 (09:20→17:35)
--- NOTE | 2021-07-19 13:33 | PCM.PN.HOSP ---
Objective Data Objective Data Vital Signs: Vital Signs Temp Pulse Resp BP Pulse Ox 98.7 F 91 14 137/93 H 95 07/19/21 08:30 07/19/21 08:30 07/19/21 08:30 07/19/21 08:30 07/19/21 08:30 Oxygen Delivery Method Room Air Weight: 68.039 kg Body Mass Index (BMI) 27.4 Intake & Output: Intake and Output for Last 24 Hours 07/17/21 07/18/21 07/19/21 23:59 23:59 23:59 Intake Total 150 / 150 120 / 120 Output Total 800 / 800 550 / 950 400 / 400 Balance -650 / -650 -550 / -830 -280 / -280 Lab / Micro Data Result Diagrams: 07/18/21 05:30 07/18/21 05:30 Physical Exam Narrative Physical exam: General: Alert, Oriented x1, Cooperative, No apparent distress, HEENT: Atraumatic Oral: Moist Mucosa Neck: Supple Lungs: Clear to auscultation Cardiovascular: HS I+II, regular, no murmurs Abdomen: Bowel Sounds Present, Soft, Non Tender Extremities: No edema Assessment & Plan Assessment/Plan (1) Debility: PLAN: 1. Chronic debility secondary to cerebral palsy, with poor family support for now Waiting on discharge to facility. 2. Hypokalemia, replaced 3. Elevated blood pressure without a diagnosis of hypertension, blood pressure remained stable Continue to monitor 4. Hypophosphatemia, replaced 5. DVT prophylaxis?Lovenox subcu Charges/Coding Visit Charges Inpatient E&M: 31370 Subs Hosp L1
[2021-07-19 15:25] VITALS: BP 122/91; PULSE 90; RESP 14; TEMP 37.1; O2SAT 96
[2021-07-19] MEDS: MELATONIN 3 MG TABLET PO (21:29)
[2021-07-19 21:30] VITALS: BP 128/95; PULSE 94; RESP 14; TEMP 36.9; O2SAT 95
[2021-07-19] MEDS: Acetaminophen 325 MG Tablet 650 MG PO (23:09)
[2021-07-20 03:30] VITALS: BP 117/77; PULSE 61; RESP 14; TEMP 36.6; O2SAT 96
[2021-07-20 06:10] LABS: Absolute Lymphocyte Count 2.17 X10^3/uL (0.83-4.51); Absolute Neutrophil Count 3.4 X10^3/uL (2.0-7.7); Basophil# 0.02 X10^3/uL; Basophil% 0.3 % (0-1); Eosinophil# 0.13 X10^3/uL; Eosinophils% 2.1 % (0-5); Hematocrit 42.5 % (37-47); Hemoglobin 14.3 g/dL (12.0-15.0); Lymphocyte # 2.17 X10^3/ul (0.83-4.51); Lymphocyte % 34.8 % (19-41); Mean Corp Hgb Conc 33.6 g/dL (32-36); Mean Corpuscular Hgb 29.5 pg (27.0-32.0); Mean Corpuscular Volume 87.8 fL (81-99); Monocyte# 0.47 X10^3/uL; Monocyte% 7.5 % (0-10); NRBC Flagged by Analyzer 0 % (0-5); Neutrophil # 3.42 X10^3/uL (2.7-7.7); Platelet Count 231 K/mm3 (150-450); RBC Distribution Width CV 13.2 % (11.6-14.6); RBC Distribution Width SD 42.3 fl (35.1-43.9); Red Blood Count 4.84 M/mm3 (4.2-5.4); White Blood Count 6.2 K/mm3 (4.4-11.0)
[2021-07-20 06:50] LABS: ALB/GLOB Ratio 0.7 RATIO (0.9-2.4); AST(SGOT) 26 U/L (15-37); Alanine Aminotransfer ALT/SGPT 41 U/L (13-56); Albumin, Serum 2.8 g/dL (3.2-5.0); Alkaline Phosphatase 94 U/L (45-117); Anion Gap 5 (5-15); BUN 19 mg/dL (7-18); BUN/Creat Ratio 34.1 RATIO (10-20); Calcium,Total 8.7 mg/dL (8.5-10.1); Chloride 107 mmol/L (98-107); Creatinine, Serum 0.56 mg/dL (0.55-1.02); EST Glomerular Filtration Rate 123 mL/min (>60); Est Glom Filt Rate - Afr Amer 149 mL/min (>60); Estimated Creatinine Clearance 97.17 ml/min; Globulin 3.9 g/dL (2.2-4.2); Glucose 102 mg/dL (74-106); Potassium 4.1 mmol/L (3.5-5.1); Protein, Total 6.7 g/dL (6.4-8.2); Sodium Level 138 mmol/L (136-145)
[2021-07-20 09:10] VITALS: BP 125/78; PULSE 67; RESP 16; TEMP 36.6; O2SAT 99
[2021-07-20] MEDS: Potassium Chloride Oral Tablet 20 MEQ PO ×2 (09:11→16:29)
[2021-07-20] MEDS: Menthol/Lanolin/Calamine/Znox 113 GM Tube 1 APPLIC TOPICAL ×2 (09:12→21:03)
[2021-07-20] MEDS: Enoxaparin 40 MG/0.4 ML Syringe SC (09:12)
--- NOTE | 2021-07-20 10:23 | CASEMGMT ---
Addendum entered by Colette Mcmahon 07/20/21 16:14: Social Work SW faxed updated notes to [facility] and requested precert be started. FLORECITA Koroma Original Note: Social Work SW received call from Henri from the Board of DD ([phone]) and he will be contacting pt for a phone interview today to clear pt for SNF placement. SW will continue to follow for d/c planning after pt is cleared by board of DD. FLORECITA Koroma
--- NOTE | 2021-07-20 10:42 | PCM.PN.HOSP ---
Subjective Subjective Follow-up on debility: Patient was seen and examined. No acute events overnight. Objective Data Objective Data Vital Signs: Vital Signs Temp Pulse Resp BP Pulse Ox 97.9 F 67 16 125/78 H 99 07/20/21 09:10 07/20/21 09:10 07/20/21 09:10 07/20/21 09:10 07/20/21 09:10 Oxygen Delivery Method Room Air Weight: 68.039 kg Body Mass Index (BMI) 27.4 Intake & Output: Intake and Output for Last 24 Hours 07/18/21 07/19/21 07/20/21 23:59 23:59 23:59 Intake Total 120 / 360 360 / 360 Output Total 550 / 950 400 / 400 Balance -550 / -830 -280 / -40 360 / 360 Lab / Micro Data Result Diagrams: 07/20/21 05:40 07/20/21 05:40 Labs: Laboratory Results - last 24 hr 07/20/21 05:40: WBC 6.2, RBC 4.84, Hgb 14.3, Hct 42.5, MCV 87.8, MCH 29.5, MCHC 33.6 D, RDW Std Deviation 42.3, RDW Coeff of Lore 13.2, Plt Count 231, MPV 10.0, Immature Gran % (Auto) 0.300, Neut % (Auto) 55.0, Lymph % (Auto) 34.8, [place] % (Auto) 7.5, Eos % (Auto) 2.1, Baso % (Auto) 0.3, Absolute Neuts (auto) 3.4, Absolute Lymphs (auto) 2.17, Nucleated RBC % 0 07/20/21 05:40: Sodium 138, Potassium 4.1, Chloride 107, Carbon Dioxide 26.0, Anion Gap 5, BUN 19 H, Creatinine 0.56, Estim Creat Clear Calc 97.17, Est GFR (MDRD) Af Amer 149, Est GFR (MDRD) Non-Af 123, BUN/Creatinine Ratio 34.1 H, Glucose 102, Calcium 8.7, Total Bilirubin 0.40, AST 26, ALT 41, Alkaline Phosphatase 94, Total Protein 6.7, Albumin 2.8 L, Globulin 3.9, Albumin/Globulin Ratio 0.7 L Physical Exam Narrative Physical exam: General: Alert, Oriented x1, Cooperative, No apparent distress, HEENT: Atraumatic Oral: Moist Mucosa Neck: Supple Lungs: Clear to auscultation Cardiovascular: HS I+II, regular, no murmurs Abdomen: Bowel Sounds Present, Soft, Non Tender Extremities: No edema Assessment & Plan Assessment/Plan (1) Debility: PLAN: 1. Chronic debility secondary to cerebral palsy, with poor family support for now Waiting on discharge to facility. 2. Hypokalemia, replaced 3. Elevated blood pressure without a diagnosis of hypertension, blood pressure remained stable Continue to monitor 4. Hypophosphatemia, replaced 5. DVT prophylaxis?Lovenox subcu Charges/Coding Visit Charges Inpatient E&M: 99459 Subs Hosp L1
[2021-07-20 14:58] VITALS: BP 133/86; PULSE 79; RESP 16; TEMP 36.3; O2SAT 97
[2021-07-20 20:14] VITALS: BP 123/77; PULSE 84; RESP 17; TEMP 37; O2SAT 96
[2021-07-20] MEDS: MELATONIN 3 MG TABLET PO (21:03)
[2021-07-21 02:25] VITALS: BP 101/66; PULSE 59; RESP 16; TEMP 36.5; O2SAT 97
[2021-07-21 06:55] LABS: Absolute Lymphocyte Count 2.06 X10^3/uL (0.83-4.51); Absolute Neutrophil Count 2.5 X10^3/uL (2.0-7.7); Basophil# 0.03 X10^3/uL; Basophil% 0.6 % (0-1); Eosinophil# 0.11 X10^3/uL; Eosinophils% 2.2 % (0-5); Hematocrit 39.7 % (37-47); Hemoglobin 13.5 g/dL (12.0-15.0); Lymphocyte # 2.06 X10^3/ul (0.83-4.51); Mean Corpuscular Hgb 29.5 pg (27.0-32.0); Mean Corpuscular Volume 86.9 fL (81-99); Mean Platelet Vol. 10.4 fl (6.2-12.0); Monocyte# 0.36 X10^3/uL; Monocyte% 7.2 % (0-10); NRBC Flagged by Analyzer 0 % (0-5); Neutrophil # 2.46 X10^3/uL (2.7-7.7); Neutrophil % 48.8 % (47-70); Platelet Count 211 K/mm3 (150-450); RBC Distribution Width CV 13.1 % (11.6-14.6); RBC Distribution Width SD 40.7 fl (35.1-43.9); Red Blood Count 4.57 M/mm3 (4.2-5.4)
[2021-07-21 07:11] LABS: ALB/GLOB Ratio 0.8 RATIO (0.9-2.4); AST(SGOT) 24 U/L (15-37); Alanine Aminotransfer ALT/SGPT 42 U/L (13-56); Albumin, Serum 2.6 g/dL (3.2-5.0); Alkaline Phosphatase 83 U/L (45-117); Anion Gap 3 (5-15); BUN 18 mg/dL (7-18); BUN/Creat Ratio 30.6 RATIO (10-20); Calcium,Total 9.1 mg/dL (8.5-10.1); Chloride 109 mmol/L (98-107); Creatinine, Serum 0.59 mg/dL (0.55-1.02); EST Glomerular Filtration Rate 116 mL/min (>60); Est Glom Filt Rate - Afr Amer 140 mL/min (>60); Estimated Creatinine Clearance 92.23 ml/min; Globulin 3.4 g/dL (2.2-4.2); Glucose 93 mg/dL (74-106); Potassium 4.3 mmol/L (3.5-5.1); Sodium Level 139 mmol/L (136-145)
[2021-07-21] MEDS: Enoxaparin 40 MG/0.4 ML Syringe SC (09:13)
[2021-07-21] MEDS: Menthol/Lanolin/Calamine/Znox 113 GM Tube 1 APPLIC TOPICAL ×2 (09:14→21:02)
[2021-07-21] MEDS: Potassium Chloride Oral Tablet 20 MEQ PO ×2 (09:14→17:22)
[2021-07-21 09:20] VITALS: BP 120/92; PULSE 75; RESP 16; TEMP 36.4; O2SAT 96
--- NOTE | 2021-07-21 13:37 | PCM.PN.HOSP ---
Subjective Subjective Follow-up on debility: Patient was seen and examined. No acute events overnight. Objective Data Objective Data Vital Signs: Vital Signs Temp Pulse Resp BP Pulse Ox 97.5 F L 75 16 120/92 H 96 07/21/21 09:20 07/21/21 09:20 07/21/21 09:20 07/21/21 09:20 07/21/21 09:20 Oxygen Delivery Method Room Air Weight: 68.039 kg Body Mass Index (BMI) 27.4 Intake & Output: Intake and Output for Last 24 Hours 07/19/21 07/20/21 07/21/21 23:59 23:59 23:59 Intake Total 120 / 360 960 / 960 200 / 200 Output Total 400 / 400 Balance -280 / -40 960 / 960 200 / 200 Lab / Micro Data Result Diagrams: 07/21/21 05:55 07/21/21 05:55 Labs: Laboratory Results - last 24 hr 07/21/21 05:55: WBC 5.0, RBC 4.57, Hgb 13.5, Hct 39.7, MCV 86.9, MCH 29.5, MCHC 34.0, RDW Std Deviation 40.7, RDW Coeff of Lore 13.1, Plt Count 211, MPV 10.4, Immature Gran % (Auto) 0.200, Neut % (Auto) 48.8, Lymph % (Auto) 41.0, [place] % (Auto) 7.2, Eos % (Auto) 2.2, Baso % (Auto) 0.6, Absolute Neuts (auto) 2.5, Absolute Lymphs (auto) 2.06, Nucleated RBC % 0 07/21/21 05:55: Sodium 139, Potassium 4.3, Chloride 109 H, Carbon Dioxide 27.0, Anion Gap 3 L, BUN 18, Creatinine 0.59, Estim Creat Clear Calc 92.23, Est GFR (MDRD) Af Amer 140, Est GFR (MDRD) Non-Af 116, BUN/Creatinine Ratio 30.6 H, Glucose 93, Calcium 9.1, Total Bilirubin 0.20, AST 24, ALT 42, Alkaline Phosphatase 83, Total Protein 6.0 L, Albumin 2.6 L, Globulin 3.4, Albumin/Globulin Ratio 0.8 L Physical Exam Narrative Physical exam: General: Alert, Oriented x1, Cooperative, No apparent distress, HEENT: Atraumatic Oral: Moist Mucosa Neck: Supple Lungs: Clear to auscultation Cardiovascular: HS I+II, regular, no murmurs Abdomen: Bowel Sounds Present, Soft, Non Tender Extremities: No edema Assessment & Plan Assessment/Plan (1) Debility: PLAN: 1. Chronic debility secondary to cerebral palsy, with poor family support for now Waiting on discharge to facility. 2. Hypokalemia, replaced 3. Elevated blood pressure without a diagnosis of hypertension, blood pressure remained stable Continue to monitor 4. Hypophosphatemia, replaced 5. DVT prophylaxis?Lovenox subcu Charges/Coding Visit Charges Inpatient E&M: 30900 Subs Hosp L1
[2021-07-21 14:45] VITALS: BP 133/75; PULSE 88; RESP 16; TEMP 36.5; O2SAT 95
--- NOTE | 2021-07-21 15:26 | CASEMGMT ---
Addendum entered by Lali Stinson 07/21/21 17:00: SHIV checked [employer], no determination has been made. SHIV placed a call to [facility] and admissions is gone for the day. SHIV updated Kimo that this worker has not received approval through Board of DD yet so pt will need to remain at [facility] through the weekend. Kimo states understanding. Plan: [facility] pending pre-cert and approval from Board of DD Original Note: Social Work Note SHIV checked [employer], no determination has been made yet. SHIV placed a call to [facility] and spoke with Sparkle in admissions. Sparkle confirms pre-cert was submitted, has not been obtained yet. SHIV informed Sparkle that this worker is still waiting for determination from Board of DD. SHIV informed Sparkle that this worker will be leaving today soon, will check [employer] before this worker leaves and let her know. Sparkle states understanding. SHIV in to speak with pt. SHIV updated pt that approval to go to [facility] is still pending. Plan: [facility] pending pre-cert and approval from Board of DD Lali Stinson MINING MANAGER, BUFFING WHEEL PRESSER
[2021-07-21 20:45] VITALS: BP 118/89; PULSE 76; RESP 18; TEMP 36.7; O2SAT 98
[2021-07-21] MEDS: MELATONIN 3 MG TABLET PO (23:54)
[2021-07-22 03:00] VITALS: BP 106/70; PULSE 71; RESP 18; TEMP 36.6; O2SAT 97
[2021-07-22] MEDS: Enoxaparin 40 MG/0.4 ML Syringe SC (08:10)
[2021-07-22] MEDS: Menthol/Lanolin/Calamine/Znox 113 GM Tube 1 APPLIC TOPICAL ×2 (08:10→20:35)
[2021-07-22] MEDS: Potassium Chloride Oral Tablet 20 MEQ PO ×2 (08:10→16:15)
[2021-07-22 08:50] VITALS: BP 120/79; PULSE 70; RESP 16; TEMP 36.4; O2SAT 94
--- NOTE | 2021-07-22 09:08 | PN.HOSP_ITS ---
Subjective Subjective Follow-up on debility: Patient was seen and examined. She denies any complains. No acute events. Objective Data Objective Data Vital Signs: Vital Signs Temp Pulse Resp BP Pulse Ox 97.6 F L 70 16 120/79 94 07/22/21 08:50 07/22/21 08:50 07/22/21 08:50 07/22/21 08:50 07/22/21 08:50 Oxygen Delivery Method Room Air Weight: 68.039 kg Body Mass Index (BMI) 27.4 Intake & Output: Intake and Output for Last 24 Hours 07/20/21 07/21/21 07/22/21 23:59 23:59 23:59 Intake Total 960 / 960 500 / 560 60 / 60 Balance 960 / 960 500 / 560 60 / 60 Lab / Micro Data Result Diagrams: 07/21/21 05:55 07/21/21 05:55 Physical Exam Narrative Physical exam: General: Alert, Oriented x1, Cooperative, No apparent distress, HEENT: Atraumatic Oral: Moist Mucosa Neck: Supple Lungs: Clear to auscultation Cardiovascular: HS I+II, regular, no murmurs Abdomen: Bowel Sounds Present, Soft, Non Tender Extremities: No edema Assessment & Plan Assessment/Plan (1) Debility: PLAN: 1. Debility secondary to cerebral palsy, with poor family support Waiting on discharge to facility. 2. Hypokalemia, replaced 3. Elevated blood pressure without a diagnosis of hypertension, blood pressure remained stable Continue to monitor 4. Hypophosphatemia, replaced 5. DVT prophylaxis?Lovenox subcu Charges/Coding Visit Charges Inpatient E&M: 10709 [facility] [place] Hosp L1
[2021-07-22 12:38] VITALS: BP 117/90; PULSE 75; RESP 16; TEMP 36.1; O2SAT 96
[2021-07-22 16:11] VITALS: BP 145/96; PULSE 88; RESP 16; TEMP 36.4; O2SAT 97
[2021-07-22 20:29] VITALS: BP 117/75; PULSE 77; RESP 18; TEMP 36.4; O2SAT 97
[2021-07-22] MEDS: MELATONIN 3 MG TABLET PO (20:34)
[2021-07-23 02:43] VITALS: BP 116/64; PULSE 67; RESP 18; TEMP 36.6; O2SAT 97
[2021-07-23 06:15] LABS: Absolute Lymphocyte Count 1.95 X10^3/uL (0.83-4.51); Absolute Neutrophil Count 2.9 X10^3/uL (2.0-7.7); Basophil# 0.02 X10^3/uL; Basophil% 0.4 % (0-1); Eosinophil# 0.12 X10^3/uL; Eosinophils% 2.2 % (0-5); Hematocrit 39.2 % (37-47); Hemoglobin 13.6 g/dL (12.0-15.0); Lymphocyte # 1.95 X10^3/ul (0.83-4.51); Lymphocyte % 36.1 % (19-41); Mean Corp Hgb Conc 34.7 g/dL (32-36); Mean Corpuscular Hgb 30.6 pg (27.0-32.0); Mean Corpuscular Volume 88.1 fL (81-99); Mean Platelet Vol. 9.4 fl (6.2-12.0); Monocyte# 0.38 X10^3/uL; NRBC Flagged by Analyzer 0 % (0-5); Neutrophil % 53.7 % (47-70); Platelet Count 234 K/mm3 (150-450); RBC Distribution Width CV 13.1 % (11.6-14.6); RBC Distribution Width SD 41.8 fl (35.1-43.9); Red Blood Count 4.45 M/mm3 (4.2-5.4); White Blood Count 5.4 K/mm3 (4.4-11.0)
[2021-07-23 06:32] LABS: Albumin, Serum 2.6 g/dL (3.2-5.0); BUN 20 mg/dL (7-18); BUN/Creat Ratio 29.9 RATIO (10-20); Creatinine, Serum 0.67 mg/dL (0.55-1.02); EST Glomerular Filtration Rate 100 mL/min (>60); Est Glom Filt Rate - Afr Amer 120 mL/min (>60); Estimated Creatinine Clearance 81.22 ml/min; Globulin 3.4 g/dL (2.2-4.2); Glucose 100 mg/dL (74-106)
[2021-07-23 06:33] LABS: ALB/GLOB Ratio 0.8 RATIO (0.9-2.4); AST(SGOT) 14 U/L (15-37); Alanine Aminotransfer ALT/SGPT 35 U/L (13-56); Alkaline Phosphatase 82 U/L (45-117); Anion Gap 5 (5-15); Chloride 109 mmol/L (98-107); Potassium 4.2 mmol/L (3.5-5.1); Sodium Level 141 mmol/L (136-145)
[2021-07-23 08:07] VITALS: BP 101/69; PULSE 60; RESP 16; TEMP 36.4; O2SAT 97
--- NOTE | 2021-07-23 08:22 | PCM.PN.HOSP ---
Subjective Subjective Follow-up on debility: Patient was seen and examined. No acute events overnight. No new complains. Objective Data Objective Data Vital Signs: Vital Signs Temp Pulse Resp BP Pulse Ox 97.6 F L 60 16 101/69 97 07/23/21 08:07 07/23/21 08:07 07/23/21 08:07 07/23/21 08:07 07/23/21 08:07 Oxygen Delivery Method Room Air Weight: 68.039 kg Body Mass Index (BMI) 27.4 Intake & Output: Intake and Output for Last 24 Hours 07/21/21 07/22/21 07/23/21 23:59 23:59 23:59 Intake Total 500 / 560 510 / 510 Balance 500 / 560 510 / 510 Lab / Micro Data Result Diagrams: 07/23/21 06:05 07/23/21 06:05 Labs: Laboratory Results - last 24 hr 07/23/21 06:05: WBC 5.4, RBC 4.45, Hgb 13.6, Hct 39.2, MCV 88.1, MCH 30.6, MCHC 34.7, RDW Std Deviation 41.8, RDW Coeff of Lore 13.1, Plt Count 234, MPV 9.4, Immature Gran % (Auto) 0.600, Neut % (Auto) 53.7, Lymph % (Auto) 36.1, [place] % (Auto) 7.0, Eos % (Auto) 2.2, Baso % (Auto) 0.4, Absolute Neuts (auto) 2.9, Absolute Lymphs (auto) 1.95, Nucleated RBC % 0 07/23/21 06:05: Sodium 141, Potassium 4.2, Chloride 109 H, Carbon Dioxide 27.0, Anion Gap 5, BUN 20 H, Creatinine 0.67, Estim Creat Clear Calc 81.22, Est GFR (MDRD) Af Amer 120, Est GFR (MDRD) Non-Af 100, BUN/Creatinine Ratio 29.9 H, Glucose 100, Calcium 9.0, Total Bilirubin 0.20, AST 14 L, ALT 35, Alkaline Phosphatase 82, Total Protein 6.0 L, Albumin 2.6 L, Globulin 3.4, Albumin/Globulin Ratio 0.8 L Physical Exam Narrative Physical exam: General: Alert, Oriented x1, Cooperative, No apparent distress, HEENT: Atraumatic Oral: Moist Mucosa Neck: Supple Lungs: Clear to auscultation Cardiovascular: HS I+II, regular, no murmurs Abdomen: Bowel Sounds Present, Soft, Non Tender Extremities: No edema Assessment & Plan Assessment/Plan (1) Debility: PLAN: 1. Debility secondary to cerebral palsy, with poor family support Waiting on discharge to facility. 2. Hypokalemia, replaced 3. Elevated blood pressure without a diagnosis of hypertension, blood pressure remained stable Continue to monitor 4. Hypophosphatemia, replaced 5. DVT prophylaxis?Lovenox subcu Charges/Coding Visit Charges Inpatient E&M: 96699 Subs Hosp L1
[2021-07-23] MEDS: Enoxaparin 40 MG/0.4 ML Syringe SC (08:46)
[2021-07-23] MEDS: Menthol/Lanolin/Calamine/Znox 113 GM Tube 1 APPLIC TOPICAL ×2 (08:49→20:51)
[2021-07-23 13:57] VITALS: BP 102/75; PULSE 72; RESP 16; TEMP 36.6; O2SAT 94
[2021-07-23 20:48] VITALS: BP 123/80; PULSE 72; RESP 18; TEMP 36.6; O2SAT 96
[2021-07-23] MEDS: MELATONIN 3 MG TABLET PO (20:51)
[2021-07-24 03:04] VITALS: BP 92/65; PULSE 61; RESP 18; TEMP 36.9; O2SAT 96
[2021-07-24] MEDS: Senna/Docusate Sodium 1 Tablet 2 TABLET PO (03:17)
--- NOTE | 2021-07-24 07:11 | TREXTCAR_ITS ---
Diet 07/15/21 15:45 Diet: Regular - General Food consistency:: Soft & Bite Sized Liquid Consistency:: Regular/Thin Type of Dietary Supplement:: 8oz Ensure Enlive Q meal Is pt able to select menu?: No Diet Comments: soft cut up meats/veggies, finger foods, edentulous, sippy cups for liquids Routine Orders/Code Status Keep PO Greater than or Equal to (%): 94 Routine Lab Work: CBC (within 3 days) and BMP (within 3 days) Code Status: Full Code Wound(s) right elbow: Wound Type: cat scratch RFA: Wound Type: CAT SCRATCH RIGHT FLANK: Wound Type: SCRATCH Therapies Weight Bearing: Weight bearing as tolerated Physical Therapy: Eval and Treat Occupational Therapy: Eval and Treat Problem/Diagnosis (1) Debility: Status: Acute Allergies/Procedures Done in Hospital Allergies No Known Allergies Allergy (Verified 11/27/20 02:13) Procedures: None Type of Care/Length of Stay Estimated LOS: Convalescent Care Less Than 30 days Type of Care Needed: Skilled Rehab Potential: Good Prognosis: Good Additional Orders/Day of Discharge Day of Discharge: 07/24/21 Dietary and Speech Recommendations Dietitian Recommendations/Changes: continue regular diet and 240mL ensure enlive w/ meals; recommend close monitoring of electrolytes given 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 Discharge Orders/Prescriptions Prescriptions: New nystatin [Nyamyc] 100,000 unit/gram Powder 1 applic topical BID Qty: 0 RF: 0 menthol-zinc oxide [Calmoseptine] 0.44-20.6 % Ointment 1 applic topical BID Qty: 0 RF: 0 Referrals / Follow Up: Care Physician,No Primary [Primary Care Provider] - Doctor,Your [STAFF PHYSICIAN] - 3-5 Days if not improving Disposition Disposition (needs filled in before D/C Order can be placed): [facility]
[2021-07-24 08:48] VITALS: BP 118/81; PULSE 63; RESP 17; TEMP 36.4; O2SAT 99
[2021-07-24] MEDS: Enoxaparin 40 MG/0.4 ML Syringe SC (08:55)
[2021-07-24] MEDS: Menthol/Lanolin/Calamine/Znox 113 GM Tube 1 APPLIC TOPICAL ×2 (08:56→20:19)
[2021-07-24 09:16] VITALS: O2SAT 98
--- NOTE | 2021-07-24 09:48 | PCM.PN.HOSP ---
Subjective Subjective Follow-up on debility: Patient was seen and examined. No acute events overnight. No new complains. Objective Data Objective Data Vital Signs: Vital Signs Temp Pulse Resp BP Pulse Ox 97.5 F L 63 17 118/81 H 99 07/24/21 08:48 07/24/21 08:48 07/24/21 08:48 07/24/21 08:48 07/24/21 08:48 Oxygen Delivery Method Room Air Weight: 68.039 kg Body Mass Index (BMI) 27.4 Intake & Output: Intake and Output for Last 24 Hours 07/22/21 07/23/21 07/24/21 23:59 23:59 23:59 Intake Total 510 / 510 600 / 600 Balance 510 / 510 600 / 600 Lab / Micro Data Result Diagrams: 07/23/21 06:05 07/23/21 06:05 Physical Exam Narrative Physical exam: General: Alert, Oriented x1, Cooperative, No apparent distress, HEENT: Atraumatic Oral: Moist Mucosa Neck: Supple Lungs: Clear to auscultation Cardiovascular: HS I+II, regular, no murmurs Abdomen: Bowel Sounds Present, Soft, Non Tender Extremities: No edema Assessment & Plan Assessment/Plan (1) Debility: PLAN: 1. Debility secondary to cerebral palsy, with poor family support Waiting on discharge to facility. 2. Hypokalemia, replaced 3. Elevated blood pressure without a diagnosis of hypertension, blood pressure remained stable Continue to monitor 4. Hypophosphatemia, replaced 5. DVT prophylaxis?Lovenox subcu Charges/Coding Visit Charges Inpatient E&M: 96700 Subs Hosp L1
--- NOTE | 2021-07-24 10:29 | CASEMGMT ---
Social Work Note SHIV checked [employer] website, no determination has been made. SHIV placed a call to [facility] Reviewer Henri Rodriguezmichele ([phone]) and asked for update on PAS/RR review. Henri states he was unable to get a hold of pt last week to complete assessment and states no family was listed. SHIV informed Henri that this worker could take phone into pt's room. SHIV informed Henri that this worker has been working with pt's brother Jordon for discharge plans as he is pt's HCPOA by law. Henri states that he can talk to pt's brother too for assessment. SHIV provided Henri with Jordon's number. SHIV informed Henri that Jordon can only be reached during the hours of 11am-2pm. Henri states understanding. Plan: [facility] pending approval through Board of DD and pre-cert. Lali Stinson SENIOR LOAN OFFICER, SHEET ROCK INSTALLER
--- NOTE | 2021-07-24 10:41 | CASEMGMT ---
Discharge Business Analyst Intern Faxed over updates on patient to Carmen at [facility]. Jihan Evans Discharge Business Analyst Intern
[2021-07-24 14:31] VITALS: BP 138/71; PULSE 81; RESP 18; TEMP 37; O2SAT 97
--- NOTE | 2021-07-24 15:03 | CASEMGMT ---
Addendum entered by Lali Stinson 07/24/21 16:19: SHIV placed another call to [facility] and spoke with Sommer. Sommer states she spoke with her business office who states pre-cert was not submitted. Sommer states their business office will not submit for pre-cert until discharge date is know. Sommer states pre-cert was submitted today and they anticipate they will receive it tomorrow. SHIV asked Sommer to let this worker know as soon as pre-cert is obtained. Plan: [facility] pending pre-cert Addendum entered by Lali Stinson 07/24/21 15:11: SHIV faxed Board of DD approval letter to Sommer at [facility]. Original Note: Social Work Note SHIV checked [employer] website, Board of DD has approved pt for SNF level of care. SHIV placed a call to Sommer at [facility] and updated her that approval from Board of DD was obtained. Sommer states she will check in regards to pt's pre-cert. Plan: [facility] pending pre-cert Lali Stinson MANAGER PRODUCT MARKETING, FOREST WORKER
[2021-07-24 20:15] VITALS: BP 118/77; PULSE 82; RESP 16; TEMP 36.6; O2SAT 98
[2021-07-24] MEDS: MELATONIN 3 MG TABLET PO (20:20)
[2021-07-25 02:00] VITALS: BP 107/76; PULSE 74; RESP 16; TEMP 36.6; O2SAT 97
[2021-07-25 08:02] VITALS: BP 126/78; PULSE 69; RESP 16; TEMP 36.3; O2SAT 95
[2021-07-25] MEDS: Menthol/Lanolin/Calamine/Znox 113 GM Tube 1 APPLIC TOPICAL ×2 (09:14→20:59)
[2021-07-25] MEDS: Enoxaparin 40 MG/0.4 ML Syringe SC (09:15)
--- NOTE | 2021-07-25 13:56 | CASEMGMT ---
Addendum entered by Lali Stinson 07/25/21 15:45: SHIV placed a call to [facility], Sommer in admissions is not available. SHIV left message for Sommer to call [phone] if pre-cert is obtained today. Green sheet, transport forms, COVID tool, PAS/RR, PAS/RR results, and Approval from Board of DD placed on pt's chart. PAS/RR, PAS/RR results, and Approval from Board of DD in SNF folder. Pt will need COVID test on day of discharge. Pt's brother Jordon will need to be called when pt discharges from [facility]. Plan: [facility] pending pre-cert Original Note: Social Work Note SHIV placed a call to [facility] and spoke with Sommer in admissions. Pre-cert is still pending. Plan: [facility] pending pre-cert Lali Stinson PEDIATRIC RN, COMMERCIAL ADMINISTRATOR
[2021-07-25 15:47] VITALS: BP 102/67; PULSE 77; RESP 16; TEMP 36.7; O2SAT 95
--- NOTE | 2021-07-25 16:26 | PCM.PN.HOSP ---
Subjective Subjective Patient was seen and examined today, she offers no complaints to this examiner. We are currently awaiting approval for her to go to an extended care facility. Objective Data Objective Data Vital Signs: Vital Signs Temp Pulse Resp BP Pulse Ox 98.1 F 77 16 102/67 95 07/25/21 15:47 07/25/21 15:47 07/25/21 15:47 07/25/21 15:47 07/25/21 15:47 Oxygen Delivery Method Room Air Weight: 68.039 kg Body Mass Index (BMI) 27.4 Intake & Output: Intake and Output for Last 24 Hours 07/23/21 07/24/21 07/25/21 23:59 23:59 23:59 Intake Total 600 / 600 240 / 240 Balance 600 / 600 240 / 240 Lab / Micro Data Result Diagrams: 07/23/21 06:05 07/23/21 06:05 Physical Exam Narrative Patient has signs of cerebral palsy Const alert and no apparent distress General Appearance: cooperative, well kempt and well developed Orientation / Consciousness: awake, oriented to person, oriented to place and oriented to time HEENT normocephalic, head/scalp atraumatic and moist oral mucous membranes Head and Scalp: normocephalic Eyes PERRL, EOMs intact bilaterally and conjunctivae normal Neck nuchal rigidity, supple, no JVD, thyroid normal and no carotid bruits General: trachea midline Resp normal respiratory effort, no retractions, no use of accessory muscles and clear to auscultation bilaterally Auscultation: Negative for rales, rhonchi or wheezes Cardio regular rate, regular rhythm, S1 normal heart sound, S2 normal heart sound, no murmurs, no rub and no gallops GI normal to inspection, nondistended, normoactive bowel sounds, soft to palpation, non-tender and non-distended Extremity no clubbing, cyanosis or edema Skin no rashes or lesions noted General Skin Exam: no breakdown Neuro CN's II-XII intact bilaterally, no focal motor deficits and no sensory deficits noted Sensorium / Orientation: awake and alert Speech: speech normal Psych Psych Narrative: Patient has signs of cerebral palsy with effects on the patient's speech Assessment & Plan Assessment/Plan (1) Debility: PLAN: 1. Generalized debility-secondary in part to cerebral palsy, continue PT and OT, we are currently awaiting placement in a detention facility. #2 cerebral palsy-complicates care and recovery Charges/Coding Visit Charges Inpatient E&M: 43446 Subs Hosp L2
[2021-07-25 20:30] VITALS: BP 134/57; PULSE 82; RESP 16; TEMP 36.6; O2SAT 95
[2021-07-25] MEDS: MELATONIN 3 MG TABLET PO (20:59)
[2021-07-26 02:10] VITALS: BP 116/58; PULSE 82; RESP 16; TEMP 36.6; O2SAT 95
[2021-07-26 08:13] VITALS: BP 114/73; PULSE 66; RESP 14; TEMP 36.8; O2SAT 95
[2021-07-26] MEDS: Menthol/Lanolin/Calamine/Znox 113 GM Tube 1 APPLIC TOPICAL (09:38)
[2021-07-26] MEDS: Enoxaparin 40 MG/0.4 ML Syringe SC (09:40)
--- NOTE | 2021-07-26 10:10 | CASEMGMT ---
Addendum entered by Lali Stinson 07/26/21 12:43: SHIV faxed completed discharge paperwork to [facility] including transfer to extended care facility, signed medication list, any scripts, PAS/RR, PAS/RR results and Letter from Board of DD approving SNF level of care. Original in SNF folder and copy on pt's chart. Pt will need COVID test. SHIV placed a call to Sommer at [facility] and updated her that pt will discharge today, will call with transportation time. SHIV updated RN. Pt to transport via cot. SHIV placed a call to pt's brother Jordon and updated him that Approval from Board of DD was received and pre-cert. SHIV informed Jordon that pt will discharge to [facility] today and this worker will call him with transportation time when it is arranged. Jordon states that if this worker cannot get a hold of him then this worker can call his friend Mary and update her on transportation time. SW to arrange transportation. Original Note: Social Work Note SHIV received message from Sommer at [facility] stating pre-cert was obtained and pt can discharge today. Plan: [facility] skilled today Lali Stinson HEALTH AND SAFETY TRAINER, JUVENILE JUSTICE OFFICER
[2021-07-26 11:01] VITALS: BP 114/89; PULSE 80; RESP 16; TEMP 36.8; O2SAT 96
--- NOTE | 2021-07-26 11:18 | PCM.TXEXTCAR ---
Diet 07/15/21 15:45 Diet: Regular - General Food consistency:: Soft & Bite Sized Liquid Consistency:: Regular/Thin Type of Dietary Supplement:: 8oz Ensure Enlive Q meal Is pt able to select menu?: No Diet Comments: soft cut up meats/veggies, finger foods, edentulous, sippy cups for liquids Routine Orders/Code Status Keep PO Greater than or Equal to (%): 94 Code Status: Full Code Wound(s) right elbow: Wound Type: cat scratch RFA: Wound Type: CAT SCRATCH RIGHT FLANK: Wound Type: SCRATCH Therapies Weight Bearing: Non weight bearing Physical Therapy: Eval and Treat Occupational Therapy: Eval and Treat Problem/Diagnosis (1) Debility: Status: Acute (2) Cerebral palsy: Status: Chronic Allergies/Procedures Done in Hospital Allergies No Known Allergies Allergy (Verified 11/27/20 02:13) Procedures: None Type of Care/Length of Stay Estimated LOS: Convalescent Care Less Than 30 days Type of Care Needed: Skilled Rehab Potential: Good Prognosis: Good Additional Orders/Day of Discharge H&P will serve as current which was dated: 07/15/21 Day of Discharge: 07/26/21 Dietary and Speech Recommendations Dietitian Recommendations/Changes: continue regular diet and 240mL ensure enlive w/ meals - consistency per SOLID WASTE MANAGEMENT ENGINEER; recommend close monitoring of electrolytes given suspected inadequate oral intake STREAMING MEDIA SPECIALIST and risk for refeeding syndrome Discharge Plan Admission Admit Date/Time: 07/15/21 14:47 Primary Reason for Your Visit: Debility Attending Provider: Dylon Nathan Primary Care Provider: Care Physician,No Primary Instructions Patient Instructions: ED Dysuria, Uncertain Cause (Adult) Discharge Orders/Prescriptions Prescriptions: New nystatin [Nyamyc] 100,000 unit/gram Powder 1 applic topical BID Qty: 0 RF: 0 menthol-zinc oxide [Calmoseptine] 0.44-20.6 % Ointment 1 applic topical BID Qty: 0 RF: 0 Referrals / Follow Up: Care Physician,No Primary [Primary Care Provider] - Doctor,Your [STAFF PHYSICIAN] - 3-5 Days if not improving Disposition Disposition (needs filled in before D/C Order can be placed): [facility]
[2021-07-26 13:06] VITALS: RESP 14; O2SAT 95
--- NOTE | 2021-07-26 14:05 | CASEMGMT ---
Social Work Note SW accessed trip assist and arranged transportation via cot for 3:00pm. Transportation form completed and placed on SNF folder and copy on pt's chart. SW updated RN on transportation time. SHIV placed a call to Sommer at [facility] and updated her on transportation time. SHIV attempted to call pt's brother Jordon, no answer, SHIV uanble to leave message. Per previous conversations, Jordon gave this worker permission to call his friend Mary if this worker is not able to get a hold of him. SHIV placed a call to Mary and updated her on transportation time and asked Mary to relay the information to Jordon. Mary states understanding. SW in to speak with pt. SHIV updated pt that she will discharge to [facility] today at 3:00pm. Plan: [facility] skilled under PAS/RR level of care with Physician's transporting pt via cot at 3:00pm Lali Stinson MSW, MATRIX DRIER TENDER
[2021-07-26 14:21] VITALS: BP 114/83; PULSE 82; RESP 16; TEMP 36.8; O2SAT 97
--- NOTE | 2021-07-26 14:36 | NURSING ---
Gave report to nurse Adames at [facility]
--- NOTE | 2021-07-29 19:04 | PCM.DC.SUM ---
Providers Date of Admission: 07/15/21 Date of Discharge: 07/26/21 Primary Care Physician: Emerita Primary Care Phys Reason For Visit: DEBILITY Diagnosis Discharge Diagnosis (1) Debility: Status: Acute Code(s): R53.81 - Other malaise (2) Cerebral palsy: Status: Chronic Code(s): G80.9 - Cerebral palsy, unspecified Plan: 1. Generalized debility secondary in part to cerebral palsy and deconditioning #2 cerebral palsy Medications at Discharge Home Medications menthol-zinc oxide [Calmoseptine] 1 applic TOPICAL BID #0 g 07/24/21 nystatin [Nyamyc] 1 applic TOPICAL BID #0 g 07/24/21 Hospital Course Operations None Procedures None Summary of Care Provided Minutes Spent on Discharge: 30 Hospital Course: This 50-year-old white female with a history of cerebral palsy was admitted through the emergency room [facility] at [facility] due to acute on chronic debility. Family was unable to take care of the patient. She was seen by PT and OT, arrangements were made for the patient to go to an extended care facility for inpatient rehab services. On 07/26/2021, patient was seen and examined:alert and no apparent distress General Appearance: cooperative, well kempt and well developed Orientation / Consciousness: awake, oriented to person, oriented to place and oriented to time HEENT normocephalic, head/scalp atraumatic and moist oral mucous membranes Head and Scalp: normocephalic Eyes PERRL, EOMs intact bilaterally and conjunctivae normal Neck nuchal rigidity, supple, no JVD, thyroid normal and no carotid bruits General: trachea midline Resp normal respiratory effort, no retractions, no use of accessory muscles and clear to auscultation bilaterally Auscultation: Negative for rales, rhonchi or wheezes Cardio regular rate, regular rhythm, S1 normal heart sound, S2 normal heart sound, no murmurs, no rub and no gallops GI normal to inspection, nondistended, normoactive bowel sounds, soft to palpation, non-tender and non-distended Extremity no clubbing, cyanosis or edema Skin no rashes or lesions noted General Skin Exam: no breakdown Neuro CN's II-XII intact bilaterally, no focal motor deficits and no sensory deficits noted Sensorium / Orientation: awake and alert Speech: speech normal Psych Psych Narrative: Patient has signs of cerebral palsy with effects on the patient's speech Patient was felt to be stable for discharge to an extended care facility on 07/26/2021. Weight / BMI Weight Weight: 68.039 kg Body Mass Index (BMI) 27.4 ABG / Lab / Microbiology Data Result Diagrams: 07/23/21 06:05 07/23/21 06:05 Microbiology: Microbiology 07/26/21 12:50 Nasal Secretion SARS-CoV-2 Antigen (Rapid) - Final Meaningful Use Info Meaningful Use Diagnoses (Choose all that apply): None applicable Discharge Plan Admission Admit Date/Time: 07/15/21 14:47 Primary Reason for Your Visit: Debility Attending Provider: Dylon Nathan Primary Care Provider: Care Physician,No Primary Instructions Patient Instructions: ED Dysuria, Uncertain Cause (Adult) Discharge Orders/Prescriptions Prescriptions: New nystatin [Nyamyc] 100,000 unit/gram Powder 1 applic topical BID Qty: 0 RF: 0 menthol-zinc oxide [Calmoseptine] 0.44-20.6 % Ointment 1 applic topical BID Qty: 0 RF: 0 Referrals / Follow Up: Care Physician,No Primary [Primary Care Provider] - Doctor,Your [STAFF PHYSICIAN] - 3-5 Days if not improving Disposition Disposition (needs filled in before D/C Order can be placed): [facility] Charges/Coding Visit Charges OBSV E&M: 77224 Observation care discharge
== END 2021-07-26 15:07 ==
LOC: ED 13:54 → MS3 14:58
PROVIDERS: Internal Medicine; Admitting Provider Internal Medicine; Emergency Provider Emergency Medicine; Visit Provider Internal Medicine
DX: R53.81 Other malaise (principal); G80.9 Cerebral palsy, unspecified; R30.0 Dysuria; R03.0 Elevated blood-pressure reading, without diagnosis of hypertension; E87.6 Hypokalemia; E83.39 Other disorders of phosphorus metabolism
CPT/HCPCS: 36415; 80048; 80053; 81001; 83036; 83735; 84100; 84443; 85025; 87426; 96372; 97110; 97162; 97165; 97167; 97168; 97530; 97535; 97802; 97803; 99218; 99251; 99284; P9612; G0378; G0463

== ENCOUNTER → 2024-11-27 | Outpatient (CLI) | payer MEDICARE, MEDICAID, SELFPAY ==
--- NOTE | 2024-11-27 08:46 | CT_ITS ---
PROCEDURE: ABDOMEN WITH IV CONTRAST 11/27/2024 REASON FOR EXAM: D/T ULTRASOUND RESULTS DIFFUSE HEPATIC steatosis TECHNIQUE: ABDOMEN WITH IV CONTRAST. Multiplanar Sagittal and Coronal images were obtained. One or more dose reduction techniques were used (e.g., Automated exposure control, adjustment of the mA and/or kV according to patient size, use of iterative reconstruction technique. CONTRAST: Isovue 370 VOLUME: 98 mL RADIATION DOSE SUMMARY: CTDlvol: 34 mGy DLP: 1125 mGycm COMPARISON: No FINDINGS: Under aerated lung bases. Normal heart size. Cirrhotic liver morphology. Steatosis. Spleen is slightly enlarged, 13.5 cm length. Normal gallbladder, pancreas, adrenal glands, kidneys. No hydronephrosis. No retroperitoneal adenopathy. No free air. Nondistended bowel. Large rectal vault stool, partially imaged. No acute abdominal wall findings. CT/Abdomen WITH IV Contrast IMPRESSION: Mild cirrhosis and hepatic steatosis. Possible fecal impaction, partially imaged. Advise correlation. [facility]
== END | disposition home or self-care (01) ==
PROVIDERS: PCP Family Medicine; Referring Provider Family Medicine; Visit Provider Family Medicine
DX: K76.0 Fatty (change of) liver, not elsewhere classified (principal)
CPT/HCPCS: 74160; Q9967

== ENCOUNTER → 2025-03-03 | Outpatient (CLI) | payer MEDICARE, MEDICAID, SELFPAY ==
--- NOTE | 2025-03-03 15:01 | BI_ITS ---
EXAM: BI/SCRN MAMM (CAD)W/MOHAMUD BILAT
== END | disposition home or self-care (01) ==
PROVIDERS: PCP Family Medicine
DX: Z12.31 Encounter for screening mammogram for malignant neoplasm of breast (principal)
CPT/HCPCS: 77063; 77067